=== PATIENT | male | born 1960 | race American Indian/Alaskan Native ===

== ENCOUNTER 2017-07-15 08:36 | Inpatient (IN) | payer OTHER ==
[2017-07-15 09:38] LABS: Basophils % (Auto) 0.9 % (0.0-1.8); Eosinophils % (Auto) 2.8 % (0.0-4.3); Hematocrit 30.1 % (35.5-45.6); Mean Corpuscular HGB Conc 33 % (32-34); Mean Corpuscular Hemoglobin 27 pg (28-32); Mean Corpuscular Volume 80 fl (84-94); Platelet Count 196 K/mm3 (140-440); Red Blood Count 3.75 M/mm3 (3.65-5.03); Red Cell Distribution Width 16.3 % (13.2-15.2); White Blood Count 5.1 K/mm3 (4.5-11.0)
[2017-07-15 09:51] LABS: Calcium 7.3 mg/dL (8.4-10.2); Chloride 98.5 mmol/L (98-107); Potassium 5.5 mmol/L (3.6-5.0)
[2017-07-15] MEDS ORDERED: SODIUM BICARBONATE IV ONE ×2 (10:22→11:00)
[2017-07-15] MEDS ORDERED: CALCIUM GLUCONATE 1,000 MG in NACL 0.9% 100 ML IV ONE (10:22)
--- NOTE | 2017-07-15 10:27 | Emergency Department Report ---
HPI - General Chief Complaint: Psych Time Seen by Provider: 07/15/17 10:22 - HPI HPI: Room 13 The patient is a 56-year-old male presenting with a chief complaint of suicidal ideation. The patient states he's been feeling "bad" about himself and had suicidal ideation for the past 2 weeks. Patient denies any active attempts but states he's had a plan to either cut his arm, pulling his hemodialysis needles out or push himself in front of a car. The patient received dialysis every Wednesday and Wednesday and last received dialysis 2 days ago Location: Mental state Duration: 2 weeks Quality: Suicidal Severity:severe Modifying factors: [see above] Context: [see above] Mode of transportation: [not driving] ED Past Medical Hx - Past Medical History Hx Hypertension: Yes (high chol.) Hx Diabetes: Yes Hx GERD: Yes Hx Liver Disease: Yes (HEP B) Hx Renal Disease: Yes (chronic renal insufficiency) Additional medical history: hepatitis B. TIA - Surgical History Hx Cholecystectomy: Yes - Family History Family history: no significant - Social History Smoking Status: Never Smoker Substance Use Type: None (denies illicit drug use) - Medications Home Medications: Home Medications Medication Instructions Recorded Confirmed Last Taken Type Entecavir 0.5 mg PO Q48H 09/24/15 01/28/16 01/28/16 History Insulin Glargine [Lantus VIAL] 10 unit SUB-Q DAILY 09/24/15 01/28/16 01/28/16 History Metoprolol [Lopressor TAB] 100 mg PO BID tablet 09/26/15 01/28/16 01/28/16 Rx AtorvaSTATin [Lipitor] 40 mg PO QHS #30 tablet 12/03/15 01/28/16 01/27/16 Rx amLODIPine [Norvasc] 10 mg PO QDAY #30 tablet 12/03/15 01/28/16 01/28/16 Rx hydrALAZINE [Apresoline TAB] 25 mg PO Q8HR #90 tablet 12/03/15 01/28/16 Rx Metolazone [Zaroxolyn] 5 mg PO QDAY 01/28/16 01/28/16 01/28/16 History Potassium Chloride [Klor-Con 10] 10 meq PO DAILY 01/28/16 01/28/16 01/28/16 History Torsemide [Demadex] 20 mg PO BID 01/28/16 01/28/16 01/28/16 History ED Review of Systems ROS: Stated complaint: EVALUATION Other details as noted in HPI Psychiatric: suicidal thoughts Physical Exam - Physical Exam Vital Signs: Vital Signs 07/15/17 09:02 Pulse Rate 63 Blood Pressure 149/95 O2 Sat by Pulse 97 Oximetry Physical Exam: GENERAL: The patient is well-developed well-nourished male lying on stretcher not appearing to be in acute distress. [] HEENT: Normocephalic. Atraumatic. Extraocular motions are intact. Patient has moist mucous membranes. NECK: Supple. Trachea midline CHEST/LUNGS: Clear to auscultation. There is no respiratory distress noted. HEART/CARDIOVASCULAR: Regular. There is no tachycardia. There is no gallop rub or murmur. ABDOMEN: Abdomen is soft, nontender. Patient has normal bowel sounds. There is no abdominal distention. SKIN: There is no rash. There is no diaphoresis. NEURO: The patient is awake, alert, and oriented. The patient is cooperative. The patient has normal speech MUSCULOSKELETAL: There is no evidence of acute injury. ED Course Vital Signs 07/15/17 09:02 Pulse Rate 63 Blood Pressure 149/95 O2 Sat by Pulse 97 Oximetry - Consultations Consultation #1: 07/15/17 10:38 Case discussed with stabilizer operator Dr. Bernal- will arrange for hemodialysis. Have Patient admitted by hospitalist ED Medical Decision Making - Lab Data Result diagrams: 07/15/17 09:25 07/15/17 09:22 Laboratory Tests 07/15/17 07/15/17 07/15/17 09:22 09:25 10:33 WBC 5.1 RBC 3.75 Hgb 10.0 L Hct 30.1 L MCV 80 L MCH 27 L MCHC 33 RDW 16.3 H Plt Count 196 Lymph % (Auto) 32.9 [place] % (Auto) 10.8 H Eos % (Auto) 2.8 Baso % (Auto) 0.9 Lymph # 1.7 [place]nn # 0.6 Eos # 0.1 Baso # 0.0 Seg Neutrophils % 52.6 Seg Neutrophils # 2.7 Sodium 139 Potassium 5.5 H Chloride 98.5 Carbon Dioxide 24 Anion Gap 22 BUN 73 H Creatinine 6.9 H Estimated GFR 10 BUN/Creatinine Ratio 11 Glucose 136 H Calcium 7.3 L Troponin T 0.303 H* Triglycerides 162 H Cholesterol 121 LDL Cholesterol Direct 48 L HDL Cholesterol 41 Cholesterol/HDL Ratio 2.95 Salicylates < 0.3 L Acetaminophen Plasma/Serum Alcohol 07/15/17 07/15/17 10:33 10:33 WBC RBC Hgb Hct MCV MCH MCHC RDW Plt Count Lymph % (Auto) [place] % (Auto) Eos % (Auto) Baso % (Auto) Lymph # [place]nn # Eos # Baso # Seg Neutrophils % Seg Neutrophils # Sodium Potassium Chloride Carbon Dioxide Anion Gap BUN Creatinine Estimated GFR BUN/Creatinine Ratio Glucose Calcium Troponin T Triglycerides Cholesterol LDL Cholesterol Direct HDL Cholesterol Cholesterol/HDL Ratio Salicylates Acetaminophen < 15.0 Plasma/Serum Alcohol < 0.01 - Differential Diagnosis suicidal ideation, end-stage renal disease Critical care attestation.: If time is entered above; I have spent that time in minutes in the direct care of this critically ill patient, excluding procedure time. ED Disposition Clinical Impression: Suicidal ideation, Hyperkalemia, End stage renal disease Disposition: OP ADMIT IP TO THIS HOSP Is pt being admited?: Yes Does the pt Need Aspirin: No Condition: Serious Referrals: PRIMARY CARE, [Primary Care Provider] - 3-5 Days Time of Disposition: 11:09 (hospitalist paged (Dr Spencer))
[2017-07-15] MEDS ORDERED: NACL 0.9% 100 ML IV PRN (10:42)
--- NOTE | 2017-07-15 13:13 | Consultation ---
History of Present Illness - Reason for Consult Consult date: 07/15/17 end stage renal disease - History of Present Illness Mr Trejo is a 56 y/o M with a PMH of ESRD on HD TTS via LUE AVF, Hepatitis, DM , HTN who presents to the [facility] with suicidal ideation. Pt says he has been having it for the last 2 weeks. He denies fever, chills, N/V, diarrhea, cough, SHOB, CP. Pt gets HD TTS via LUE AVF and last had his HD on wednesday. He gets HD with [facility]. Pt in the ER was found to have a K of 5.5. PMH: ESRD on HD TTS, DM, HTN PAST SURGICAL HISTORY: Cholecystectomy SOCIAL HISTORY: Denies alcohol, tobacco, drugs FAMILY HISTORY: Hypertension Medications and Allergies Allergies Allergy/AdvReac Type Severity Reaction Status Date / Time prochlorperazine Allergy Swelling Verified 09/24/15 16:42 [From Compazine] prochlorperazine edisylate Allergy Swelling Verified 09/24/15 16:42 [From Compazine] prochlorperazine maleate Allergy Swelling Verified 09/24/15 16:42 [From Compazine] acetaminophen [From Percocet] AdvReac Vomiting Verified 09/24/15 16:42 oxycodone HCl [From Percocet] AdvReac Vomiting Verified 09/24/15 16:42 Home Medications Medication Instructions Recorded Confirmed Last Taken Type Entecavir 0.5 mg PO Q48H 09/24/15 01/28/16 01/28/16 History Insulin Glargine [Lantus VIAL] 10 unit SUB-Q DAILY 09/24/15 01/28/16 01/28/16 History Metoprolol [Lopressor TAB] 100 mg PO BID tablet 09/26/15 01/28/16 01/28/16 Rx AtorvaSTATin [Lipitor] 40 mg PO QHS #30 tablet 12/03/15 01/28/16 01/27/16 Rx amLODIPine [Norvasc] 10 mg PO QDAY #30 tablet 12/03/15 01/28/16 01/28/16 Rx hydrALAZINE [Apresoline TAB] 25 mg PO Q8HR #90 tablet 12/03/15 01/28/16 Rx Metolazone [Zaroxolyn] 5 mg PO QDAY 01/28/16 01/28/16 01/28/16 History Potassium Chloride [Klor-Con 10] 10 meq PO DAILY 01/28/16 01/28/16 01/28/16 History Torsemide [Demadex] 20 mg PO BID 01/28/16 01/28/16 01/28/16 History Active Meds: Active Medications Sodium Chloride (Nacl 0.9%) 100 mls @ 999 mls/hr IV SAMMI PRN PRN Reason: Hypotension Exam - Vital Signs Vital signs: Vital Signs Pulse BP Pulse Ox 63 149/95 97 07/15/17 09:02 07/15/17 09:02 07/15/17 09:02 - Physical Exam Narrative exam: GE:AAOX3 HEENT: PERRLA Neck: No JVD CVS: RRR Chest: CTAB Abd: Soft/ND, BS+ Ext: No cce, LUE AVF with good thrill Neuro: AAOX3 Results - Lab Results 07/15/17 09:25 07/15/17 09:22 Most recent lab results Calcium 7.3 mg/dL (8.4-10.2) L 07/15/17 09:22 Assessment and Plan ESRD on hemodialysis: -TTE via LUE AVF OP -Plan for HD today -HD TTS while inpatient but will eval daily -Renally dose all meds -Check CBC, BMP, Mg, Phos daily Hyperkalemia: -HD today -Low K diet Suicidal ideation: -Getting admitted to the hospital -Consider Pysche consult -Per primary Elevated troponin: -Per primary Diabetes mellitus type 2 on insulin: -Per primary -Can continue insulin Essential Hypertension: -Titrate BP meds to Keep SBP<140 Chronic Hepatitis B: -Can continue home meds Hyperlipidemia, chronic: -Continue statin -Target LDL <70 Anemia of chronic disease due to ESRD: -Epogen to keep Hg 10-12 With this note, I want to thank Dr Spencer for allowing me to participate in the care of Mr Trejo, i will continue to follow him closely with you. Thank you for the consult. Jimbo Bernal MD Nephrology, Hypertension, Dialysis, Transplantation Phone no: [phone]
--- NOTE | 2017-07-15 13:59 | History and Physical Report ---
History of Present Illness Date of admission: 07/15/17 11:38 History of present illness: 56 YO Male with ESRD on HD(T,R,Sa), HTN, DM, GERD, HBV, HLD, TIA, presents to ED for evaluation. Pt state that he has been feeling "bad" about himself and his life and has been feeling suicidal for the past 2 weeks. Patient denies any active attempts to take his own life, but states that he would likely cut his arm, or pull out his hemodialysis needles, or throw himself in front of a moving car. Pt seen and evaluated in ED and found to Past History Past Medical History: diabetes, GERD, hepatitis, hypertension, hyperlipidemia Past Surgical History: cholecystectomy Social history: , lives with family. denies: smoking, alcohol abuse, prescription drug abuse, IV drug use Family history: diabetes, hypertension Medications and Allergies Allergies Allergy/AdvReac Type Severity Reaction Status Date / Time prochlorperazine Allergy Swelling Verified 09/24/15 16:42 [From Compazine] prochlorperazine edisylate Allergy Swelling Verified 09/24/15 16:42 [From Compazine] prochlorperazine maleate Allergy Swelling Verified 09/24/15 16:42 [From Compazine] acetaminophen [From Percocet] AdvReac Vomiting Verified 09/24/15 16:42 oxycodone HCl [From Percocet] AdvReac Vomiting Verified 09/24/15 16:42 Home Medications Medication Instructions Recorded Confirmed Last Taken Type Entecavir 0.5 mg PO Q48H 09/24/15 01/28/16 01/28/16 History Insulin Glargine [Lantus VIAL] 10 unit SUB-Q DAILY 09/24/15 01/28/16 01/28/16 History Metoprolol [Lopressor TAB] 100 mg PO BID tablet 09/26/15 01/28/16 01/28/16 Rx AtorvaSTATin [Lipitor] 40 mg PO QHS #30 tablet 12/03/15 01/28/16 01/27/16 Rx amLODIPine [Norvasc] 10 mg PO QDAY #30 tablet 12/03/15 01/28/16 01/28/16 Rx hydrALAZINE [Apresoline TAB] 25 mg PO Q8HR #90 tablet 12/03/15 01/28/16 Rx Metolazone [Zaroxolyn] 5 mg PO QDAY 01/28/16 01/28/16 01/28/16 History Potassium Chloride [Klor-Con 10] 10 meq PO DAILY 01/28/16 01/28/16 01/28/16 History Torsemide [Demadex] 20 mg PO BID 01/28/16 01/28/16 01/28/16 History Active Meds: Active Medications Sodium Chloride (Nacl 0.9%) 100 mls @ 999 mls/hr IV SAMMI PRN PRN Reason: Hypotension Review of Systems Constitutional: other (suicidal), no weight loss, no weight gain, no fever, no chills Ears, nose, mouth and throat: no ear pain, no ear discharge, no tinnitis, no decreased hearing, no nose pain, no nasal congestion Cardiovascular: shortness of breath, no chest pain, no orthopnea Respiratory: no cough, no cough with sputum, no excessive sputum, no hemoptysis Gastrointestinal: no abdominal pain, no nausea, no vomiting, no diarrhea, no constipation Genitourinary Male: no dysuria, no flank pain, no discharge, no urinary frequency, no urinary hesitancy, no nocturia Rectal: no pain, no incontinence, no bleeding Musculoskeletal: no neck stiffness, no neck pain, no low back pain, no shooting leg pain Integumentary: no rash, no pruritis, no redness, no sores, no wounds, no jaundice Neurological: no transient paralysis, no paralysis, no weakness, no parathesias , no numbness, no tingling, no seizures Psychiatric: sleep disturbances, hypersomnia, change in libido, suicidal ideation, depression, hopelessness, anhedonia, no change in appetite Endocrine: no cold intolerance, no heat intolerance, no polyphagia, no excessive thirst, no polydipsia, no polyuria Hematologic/Lymphatic: no easy bruising, no easy bleeding Allergic/Immunologic: no urticaria, no allergic rhinitis, no wheezing Exam - Constitutional Vitals: Temp Pulse Resp BP Pulse Ox 97.7 F 60 16 144/88 98 07/15/17 10:48 07/15/17 10:48 07/15/17 13:03 07/15/17 10:48 07/15/17 13:03 General appearance: Present: mild distress - EENT Eyes: Present: PERRL ENT: hearing intact, clear oral mucosa - Neck Neck: Present: supple, normal ROM - Respiratory Respiratory effort: labored Respiratory: bilateral: diminished, wheezing - Cardiovascular Heart Sounds: Present: S1 & S2. Absent: rub, click - Extremities Extremities: pulses symmetrical, No edema Extremity abnormal: edema Peripheral Pulses: within normal limits - Abdominal General gastrointestinal: Present: soft, non-tender, non-distended, normal bowel sounds Male genitourinary: Present: normal - Integumentary Integumentary: Present: clear, dry - Musculoskeletal Musculoskeletal: gait normal, strength equal bilaterally - Psychiatric Psychiatric: appropriate mood/affect, no intact judgment & insight, memory intact - Neurologic Neurologic: CNII-XII intact, moves all extremities Results - Labs CBC & Chem 7: 07/15/17 09:25 07/15/17 09:22 Labs: Abnormal lab results 07/15/17 07/15/17 07/15/17 Range/Units 09:22 09:25 10:33 Hgb 10.0 L (11.8-15.2) gm/dl Hct 30.1 L (35.5-45.6) % MCV 80 L (84-94) fl MCH 27 L (28-32) pg RDW 16.3 H (13.2-15.2) % [place] % (Auto) 10.8 H (0.0-7.3) % Potassium 5.5 H (3.6-5.0) mmol/L BUN 73 H (9-20) mg/dL Creatinine 6.9 H (0.8-1.5) mg/dL Glucose 136 H (75-100) mg/dL Calcium 7.3 L (8.4-10.2) mg/dL Troponin T 0.303 H* (0.00-0.029) ng/mL Triglycerides 162 H (2-149) mg/dL LDL Cholesterol Direct 48 L (50-130) mg/dL Salicylates < 0.3 L (2.8-20.0) mg/dL 07/15/17 Range/Units 11:58 Hgb (11.8-15.2) gm/dl Hct (35.5-45.6) % MCV (84-94) fl MCH (28-32) pg RDW (13.2-15.2) % [place] % (Auto) (0.0-7.3) % Potassium (3.6-5.0) mmol/L BUN (9-20) mg/dL Creatinine (0.8-1.5) mg/dL Glucose (75-100) mg/dL Calcium (8.4-10.2) mg/dL Troponin T 0.287 H* (0.00-0.029) ng/mL Triglycerides (2-149) mg/dL LDL Cholesterol Direct (50-130) mg/dL Salicylates (2.8-20.0) mg/dL Assessment and Plan - Patient Problems (1) Acute respiratory failure Current Visit: Yes Status: Acute Plan to address problem: Supplemental oxygen, nebulizer therapy, pulmonary toilet, dialysis as per renal team. NIPPV as clinically indicated. (2) Suicidal ideation Current Visit: Yes Status: Acute Plan to address problem: [address], 1:1 Sitter, psychiatry consulted, (3) HTN (hypertension) Current Visit: Yes Status: Acute Plan to address problem: Monitor BP q shift, continue medical management (4) Diabetes Current Visit: Yes Status: Acute Plan to address problem: ADA diet, insulin, Accu check (5) End stage renal disease Current Visit: Yes Status: Acute Plan to address problem: Nephrology consulted for dialysis, fluid restriction, monitor uop q shift, (6) DVT prophylaxis Current Visit: Yes Status: Acute
[2017-07-15] MEDS ORDERED: PROVENTIL IH PRN (16:17)
[2017-07-15] MEDS ORDERED: D50W (25GM) Syringe IV PRN (16:17)
[2017-07-15] MEDS ORDERED: TYLENOL PO PRN (16:17)
[2017-07-15] MEDS ORDERED: APRESOLINE IV PRN (23:37)
--- NOTE | 2017-07-16 10:01 | XRay Report ---
AP CHEST: HISTORY: Hypertension, volume status AP view of the chest demonstrates a normal mediastinal and cardiac contour with clear lungs and normal bony and soft tissue structures. IMPRESSION: Unremarkable AP chest.
--- NOTE | 2017-07-16 10:31 | Progress Note ---
Assessment and Plan ESRD on hemodialysis: -TTE via LUE AVF OP -s/p HD yesterday. No HD today. HD tomorrow. -HD TTS while inpatient but will eval daily -Renally dose all meds -Check CBC, BMP, Mg, Phos daily Hyperkalemia: -Kayxelate 30 gms ordered. -Low K diet Suicidal ideation: -Psyche consulted. -Per primary Elevated troponin: -Per primary Diabetes mellitus type 2 on insulin: -Per primary -Can continue insulin Essential Hypertension: -Titrate BP meds to Keep SBP<140 Chronic Hepatitis B: -Can continue home meds Hyperlipidemia, chronic: -Continue statin -Target LDL <70 Anemia of chronic disease due to ESRD: -Epogen to keep Hg - iJmbo Bernal MD Nephrology, Hypertension, Dialysis, Transplantation Phone no: [phone] Subjective Date of service: 07/16/17 Interval history: Denies CP/SHOB. s/p HD yesterday. Objective - Exam Narrative Exam: GE:AAOX3 HEENT: PERRLA Neck: No JVD CVS: RRR Chest: CTAB Abd: Soft/ND, BS+ Ext: No cce, LUE AVF with good thrill Neuro: AAOX3 - Vital Signs Vital signs: Vital Signs - 12hr 07/16/17 07:20 Temperature 98.7 F Pulse Rate 68 Respiratory 20 Rate Blood Pressure 126/79 O2 Sat by Pulse 99 Oximetry - Lab 07/15/17 09:25 07/16/17 10:47 Most recent lab results Calcium 7.3 mg/dL (8.4-10.2) L 07/15/17 09:22
[2017-07-16 11:34] LABS: Calcium 7.8 mg/dL (8.4-10.2); Chloride 95.6 mmol/L (98-107); Potassium 5.3 mmol/L (3.6-5.0)
[2017-07-16] MEDS ORDERED: KIONEX PO ONE (13:10)
--- NOTE | 2017-07-16 16:11 | Progress Note ---
Assessment and Plan /Suicidal ideation [address], 1:1 Sitter, psychiatry consulted, /Hyperkalemia Likely from end-stage renal disease Treated in the ER with calcium gluconate and Kayexalate Monitor potassium level, should improve with hemodialysis We'll also place him on as needed Kayexalate /HTN (hypertension) Monitor BP q shift, continue medical management with home meds /Diabetes type 2 ADA diet, insulin, Accu check /End stage renal disease Nephrology consulted for dialysis, fluid restriction, monitor uop q shift, /DVT prophylaxis Heparin Brief history: Mr Trejo is a 56 y/o M with a PMH of ESRD on HD TTS via LUE AVF, Hepatitis, DM , HTN who presents to the [facility] with suicidal ideation. Patient denies any active attempts but states he's had a plan to either cut his arm, pulling his hemodialysis needles out or push himself in front of a car. His last dialysis was 2 days ago before this admission. Radiological data: CXR - no infiltrates or pulmonary edema Hospitalist Physical exam: GENERAL: well-developed and well-nourished AAM lying on bed appeared to be in no discomfort. HEENT: Normocephalic. Atraumatic. No conjunctival congestion or icterus. Patient has moist mucous membranes. Patient is legally blind. NECK: Supple. Trachea midline. CHEST/LUNGS: Clear to auscultated bilaterally, breathing nonlabored. No wheezes crackles or rhonchi. HEART/CARDIOVASCULAR: Regular in rate and rhythm. S1 and S2 positive. ABDOMEN: Abdomen is soft, nontender. Patient has normal bowel sounds. SKIN: There is no rash. Warm and dry. NEURO: No focal motor deficit. Follows command. MUSCULOSKELETAL: No joint effusion or tenderness. EXTRIMITY: No edema, no cyanosis or clubbing. PSYCH: Cooperative. Subjective Date of service: 07/16/17 Interval history: Patient seen and examined. Medical records and medication list reviewed. No acute event overnight noted by the RN. Patient denies any chest pain or difficulty breathing. Patient is tolerating diet. Patient has Sitter at bedside Objective - Constitutional Vitals: Vital Signs - 12hr 07/16/17 07/16/17 07/16/17 07:20 10:00 11:54 Temperature 98.7 F 98.4 F Pulse Rate 68 64 Respiratory 20 20 Rate Blood Pressure 126/79 163/84 O2 Sat by Pulse 99 99 99 Oximetry 07/16/17 15:32 Temperature 98.5 F Pulse Rate 71 Respiratory 18 Rate Blood Pressure 144/81 O2 Sat by Pulse 99 Oximetry - Labs CBC & Chem 7: 07/15/17 09:25 07/17/17 06:24 Labs: Abnormal lab results 07/15/17 07/16/17 07/16/17 Range/Units 20:55 07:01 10:47 Potassium 5.3 H (3.6-5.0) mmol/L Chloride 95.6 L (98-107) mmol/L BUN 40 H (9-20) mg/dL Creatinine 5.0 H (0.8-1.5) mg/dL Glucose 222 H (75-100) mg/dL POC Glucose 112 H (70-105) Calcium 7.8 L (8.4-10.2) mg/dL Troponin T 0.315 H* (0.00-0.029) ng/mL 07/16/17 Range/Units 11:41 Potassium (3.6-5.0) mmol/L Chloride (98-107) mmol/L BUN (9-20) mg/dL Creatinine (0.8-1.5) mg/dL Glucose (75-100) mg/dL POC Glucose 193 H (70-105) Calcium (8.4-10.2) mg/dL Troponin T (0.00-0.029) ng/mL
[2017-07-16] MEDS ORDERED: KIONEX PO PRN (16:15)
[2017-07-16] MEDS ORDERED: NON-FORMULARY (Entecavir [Entecavir] 0.5 MG) PO SCH (16:30)
[2017-07-16] MEDS ORDERED: INSULIN GLARGINE 5 UNIT SUB-Q SCH (16:30)
[2017-07-16] MEDS: APRESOLINE PO SCH (17:25)
[2017-07-16] MEDS: NORVASC PO SCH (17:26)
[2017-07-16] MEDS: ZAROXOLYN PO SCH (19:22)
[2017-07-16] MEDS ORDERED: LOPRESSOR PO SCH ×2 (22:00)
[2017-07-16] MEDS: HEPARIN SUB-Q SCH (22:09)
[2017-07-17] MEDS: LOPRESSOR PO SCH ×3 (00:19→22:00)
[2017-07-17] MEDS: APRESOLINE PO SCH ×4 (00:20→22:00)
[2017-07-17] MEDS: LEVEMIR SUB-Q SCH ×2 (00:21→22:34)
[2017-07-17 07:51] LABS: Calcium 7.8 mg/dL (8.4-10.2); Chloride 97.1 mmol/L (98-107); Potassium 3.9 mmol/L (3.6-5.0)
[2017-07-17] MEDS: NORVASC PO SCH (10:00)
[2017-07-17] MEDS: ZAROXOLYN PO SCH (11:23)
[2017-07-17] MEDS: HEPARIN SUB-Q SCH ×2 (11:23→23:24)
--- NOTE | 2017-07-17 13:43 | Progress Note ---
Assessment and Plan ESRD on hemodialysis: -TTE via LUE AVF OP -Plan for HD today. -HD TTS while inpatient but will eval daily -Renally dose all meds -Check CBC, BMP, Mg, Phos daily Hyperkalemia: -Improved. -Low K diet Suicidal ideation: -Psyche consulted. -Per primary Elevated troponin: -Per primary Diabetes mellitus type 2 on insulin: -Per primary -Can continue insulin Essential Hypertension: -Titrate BP meds to Keep SBP<140 Chronic Hepatitis B: -Can continue home meds Hyperlipidemia, chronic: -Continue statin -Target LDL <70 Anemia of chronic disease due to ESRD: -Epogen to keep Hg 10-12 Plan d/w Dr Nj Bernal MD Nephrology, Hypertension, Dialysis, Transplantation Phone no: [phone] Subjective Date of service: 07/17/17 Interval history: Denies CP/SHOB. Objective - Exam Narrative Exam: GE:AAOX3 HEENT: PERRLA Neck: No JVD CVS: RRR Chest: CTAB Abd: Soft/ND, BS+ Ext: No cce, LUE AVF with good thrill Neuro: AAOX3 - Vital Signs Vital signs: Vital Signs - 12hr 07/17/17 07/17/17 07/17/17 04:38 06:54 06:55 Temperature 98.4 F Pulse Rate 70 70 Respiratory 20 18 Rate Blood Pressure 174/90 174/90 O2 Sat by Pulse 100 Oximetry 07/17/17 07:25 Temperature 98.6 F Pulse Rate 68 Respiratory 18 Rate Blood Pressure 144/84 O2 Sat by Pulse 97 Oximetry - Lab 07/15/17 09:25 07/17/17 06:24 Most recent lab results Calcium 7.8 mg/dL (8.4-10.2) L 07/17/17 06:24
--- NOTE | 2017-07-17 15:05 | Progress Note ---
Assessment and Plan /possible seizure will obtain ct head, eeg, neuro consult as needed ativan and place on keppra /Suicidal ideation [address], 1:1 Sitter, psychiatry consulted, /Hyperkalemia Likely from end-stage renal disease Treated in the ER with calcium gluconate and Kayexalate Monitor potassium level, should improve with hemodialysis We'll also place him on as needed Kayexalate /HTN (hypertension) Monitor BP q shift, continue medical management with home meds /Diabetes type 2 ADA diet, insulin, Accu check /End stage renal disease Nephrology consulted for dialysis, fluid restriction, monitor uop q shift, /DVT prophylaxis Heparin Brief history: Mr Trejo is a 56 y/o M with a PMH of ESRD on HD TTS via LUE AVF, Hepatitis, DM , HTN who presents to the [facility] with suicidal ideation. Patient denies any active attempts but states he's had a plan to either cut his arm, pulling his hemodialysis needles out or push himself in front of a car. His last dialysis was 2 days ago before this admission. Radiological data: CXR - no infiltrates or pulmonary edema Hospitalist Physical exam: GENERAL: well-developed and well-nourished AAM lying on bed appeared to be in no discomfort. HEENT: Normocephalic. Atraumatic. No conjunctival congestion or icterus. Patient has moist mucous membranes. Patient is legally blind. NECK: Supple. Trachea midline. CHEST/LUNGS: Clear to auscultated bilaterally, breathing nonlabored. No wheezes crackles or rhonchi. HEART/CARDIOVASCULAR: Regular in rate and rhythm. S1 and S2 positive. ABDOMEN: Abdomen is soft, nontender. Patient has normal bowel sounds. SKIN: There is no rash. Warm and dry. NEURO: No focal motor deficit. MUSCULOSKELETAL: No joint effusion or tenderness. EXTRIMITY: No edema, no cyanosis or clubbing. PSYCH: appears drowsye. Subjective Date of service: 07/17/17 Interval history: Medical records and medication list reviewed. patient noted to have shaking and blank stare during hd today, given ativan for possible seizure he remained vitally stable Patient has Sitter at bedside Objective - Constitutional Vitals: Vital Signs - 12hr 07/17/17 07/17/17 07/17/17 04:38 06:54 06:55 Temperature 98.4 F Pulse Rate 70 70 Respiratory 20 18 Rate Blood Pressure 174/90 174/90 O2 Sat by Pulse 100 Oximetry 07/17/17 07/17/17 07/17/17 07:25 13:30 14:00 Temperature 98.6 F 98.8 F Pulse Rate 68 63 61 Respiratory 18 18 Rate Blood Pressure 144/84 162/100 167/99 O2 Sat by Pulse 97 Oximetry 07/17/17 07/17/17 07/17/17 14:15 14:30 14:45 Temperature Pulse Rate 62 62 63 Respiratory Rate Blood Pressure 169/105 179/110 155/92 O2 Sat by Pulse Oximetry - Labs CBC & Chem 7: 07/15/17 09:25 07/17/17 06:24 Labs: Abnormal lab results 07/16/17 07/17/17 07/17/17 Range/Units 16:23 00:24 06:10 Chloride (98-107) mmol/L BUN (9-20) mg/dL Creatinine (0.8-1.5) mg/dL Glucose (75-100) mg/dL POC Glucose 180 H 112 H 124 H (70-105) Calcium (8.4-10.2) mg/dL 07/17/17 07/17/17 Range/Units 06:24 11:35 Chloride 97.1 L (98-107) mmol/L BUN 49 H (9-20) mg/dL Creatinine 5.9 H (0.8-1.5) mg/dL Glucose 131 H (75-100) mg/dL POC Glucose 165 H (70-105) Calcium 7.8 L (8.4-10.2) mg/dL
[2017-07-17] MEDS ORDERED: NACL 0.9 (PRIMING MACHINE ONLY DIALYSIS) MC ONE (16:29)
[2017-07-17] MEDS ORDERED: ATIVAN ONE (16:56)
[2017-07-17] MEDS ORDERED: ATIVAN IV PRN (18:17)
--- NOTE | 2017-07-17 19:05 | Cat Scan Report ---
FINAL REPORT EXAM: CT HEAD/BRAIN WO CON HISTORY: seizure TECHNIQUE: CT examination of the head without IV contrast PRIORS: 09/24/2015 FINDINGS: Clear mastoid air cells and middle ear cavities. Complete opacification of left frontal sinus, new from comparison. Scattered slight mucosal thickening in both ethmoid sinuses, unchanged. Polyp or retention cyst in right maxillary sinus, unchanged. Slight mucosal thickening left maxillary sinus, unchanged. Clear sphenoid and right frontal sinus. No acute air-fluid level visualized in the included air-filled sinuses. Bone windows demonstrate no acute fracture. Oblique patient position limits the examination. The brain is without mass, mass effect, hemorrhage, or acute infarct. There is no extra-axial intracranial bleed, brain bleed, or midline shift. The ventricles and sulci are age-appropriate. IMPRESSION: No acute CVA, intracranial bleed, or brain mass Slightly greater prominence of paranasal sinus disease without evidence of acute fluid level.
[2017-07-17] MEDS: KEPPRA 500 MG in NACL 0.9% 100 ML IV SCH (23:22)
[2017-07-17] MEDS: ZOFRAN IV PRN (23:39)
[2017-07-18] MEDS: APRESOLINE PO SCH ×3 (06:00→21:41)
[2017-07-18] MEDS: ZOFRAN IV PRN (08:15)
[2017-07-18] MEDS: LOPRESSOR PO SCH ×3 (09:41→21:41)
[2017-07-18] MEDS: NORVASC PO SCH ×3 (09:42→17:21)
[2017-07-18] MEDS: ZAROXOLYN PO SCH ×3 (09:43→17:20)
[2017-07-18] MEDS: HEPARIN SUB-Q SCH ×2 (09:44→21:41)
[2017-07-18] MEDS: KEPPRA 500 MG in NACL 0.9% 100 ML IV SCH (11:42)
[2017-07-18 14:51] LABS: Calcium 8.5 mg/dL (8.4-10.2)
[2017-07-18 14:52] LABS: Chloride 93.2 mmol/L (98-107); Potassium 4.4 mmol/L (3.6-5.0)
--- NOTE | 2017-07-18 15:29 | Progress Note ---
Assessment and Plan ESRD on hemodialysis: -TTE via LUE AVF OP -s/p HD yesterday, no HD today. -HD TTS while inpatient but will eval daily -Renally dose all meds -Check CBC, BMP, Mg, Phos daily Hyperkalemia: -Better with HD. -Low K diet Suicidal ideation: -Psyche consulted. -Per primary Elevated troponin: -Per primary Diabetes mellitus type 2 on insulin: -Per primary -Can continue insulin Essential Hypertension: -Titrate BP meds to Keep SBP<140 Chronic Hepatitis B: -Can continue home meds Hyperlipidemia, chronic: -Continue statin -Target LDL <70 Anemia of chronic disease due to ESRD: -Epogen to keep Hg 05-20 Jimbo Bernal MD Nephrology, Hypertension, Dialysis, Transplantation Phone no: [phone] Subjective Date of service: 07/18/17 Interval history: Denies CP/SHOB. s/p HD yesterday. Objective - Exam Narrative Exam: GE:AAOX3 HEENT: PERRLA Neck: No JVD CVS: RRR Chest: CTAB Abd: Soft/ND, BS+ Ext: No cce, LUE AVF with good thrill Neuro: AAOX3 - Vital Signs Vital signs: Vital Signs - 12hr 07/18/17 07/18/17 07/18/17 03:45 08:07 09:41 Temperature 98.6 F 98.2 F Pulse Rate 76 70 70 Respiratory 16 20 Rate Blood Pressure 125/86 149/88 149/68 O2 Sat by Pulse 98 98 Oximetry 07/18/17 07/18/17 09:42 11:19 Temperature 98.4 F Pulse Rate 70 77 Respiratory 16 Rate Blood Pressure 149/68 125/68 O2 Sat by Pulse 100 Oximetry - Lab 07/15/17 09:25 07/18/17 13:56 Most recent lab results Calcium 8.5 mg/dL (8.4-10.2) 07/18/17 13:56
--- NOTE | 2017-07-18 16:21 | Consultation ---
History of Present Illness Consult date: 07/18/17 History of present illness: thanks for consult pln to follow I need to check old records for his PMH thanks Past History Past Medical History: diabetes, GERD, hepatitis, hypertension, hyperlipidemia Past Surgical History: cholecystectomy Social history: , lives with family. denies: smoking, alcohol abuse, prescription drug abuse, IV drug use Family history: diabetes, hypertension Medications and Allergies Allergies Allergy/AdvReac Type Severity Reaction Status Date / Time peanut Allergy Hives Verified 07/15/17 22:29 prochlorperazine Allergy Swelling Verified 09/24/15 16:42 [From Compazine] prochlorperazine edisylate Allergy Swelling Verified 09/24/15 16:42 [From Compazine] prochlorperazine maleate Allergy Swelling Verified 09/24/15 16:42 [From Compazine] acetaminophen [From Percocet] AdvReac Vomiting Verified 09/24/15 16:42 oxycodone HCl [From Percocet] AdvReac Vomiting Verified 09/24/15 16:42 Home Medications Medication Instructions Recorded Confirmed Last Taken Type Entecavir 0.5 mg PO Q48H 09/24/15 07/16/17 01/28/16 History Insulin Glargine [Lantus VIAL] 10 unit SUB-Q DAILY 09/24/15 07/16/17 01/28/16 History Metoprolol [Lopressor TAB] 100 mg PO BID tablet 09/26/15 07/16/17 01/28/16 Rx AtorvaSTATin [Lipitor] 40 mg PO QHS #30 tablet 12/03/15 07/16/17 01/27/16 Rx amLODIPine [Norvasc] 10 mg PO QDAY #30 tablet 12/03/15 07/16/17 01/28/16 Rx hydrALAZINE [Apresoline TAB] 25 mg PO Q8HR #90 tablet 12/03/15 07/16/17 Rx Metolazone [Zaroxolyn] 5 mg PO QDAY 01/28/16 07/16/17 01/28/16 History Potassium Chloride [Klor-Con 10] 10 meq PO DAILY 01/28/16 07/16/17 01/28/16 History Torsemide [Demadex] 20 mg PO BID 01/28/16 07/16/17 01/28/16 History Aspirin 325 mg PO DAILY 07/18/17 07/18/17 Unknown History Clonidine 0.1 mg PO Q8HR PRN 07/18/17 07/18/17 Unknown History Colace CAP 100 mg PO BID PRN 07/18/17 07/18/17 Unknown History Fluoxetine HCl 40 mg PO DAILY 07/18/17 07/18/17 Unknown History Gabapentin 100 mg PO DAILY 07/18/17 07/18/17 Unknown History Humalog 2 units SC AC 07/18/17 07/18/17 Unknown History Insulin Detemir [Levemir] 12 units SC HS 07/18/17 07/18/17 Unknown History Lisinopril 20 mg PO DAILY 07/18/17 07/18/17 Unknown History Metoprolol 50 mg PO BID 07/18/17 07/18/17 Unknown History Nifedipine 30 mg PO TID 07/18/17 07/18/17 Unknown History Ondansetron TAB 4 mg PO Q8H 07/18/17 07/18/17 Unknown History Protonix TAB 40 mg PO DAILY 07/18/17 07/18/17 Unknown History Sensipar 30 mg PO MOTUWETHFR 07/18/17 07/18/17 Unknown History Sevelamer Carbonate 1,600 tab PO AC 07/18/17 07/18/17 Unknown History cloNIDine-TTS PATCH 0.1 mg TP QWEEK 07/18/17 07/18/17 07/12/17 History 0.1mg traZODone [Desyrel] 50 mg PO HS 07/18/17 07/18/17 Unknown History Active Meds: Active Medications Acetaminophen (Tylenol) 650 mg PO Q4H PRN PRN Reason: Pain MILD(1-3)/Fever >100.5/KELLER Last Admin: 07/17/17 06:55 Dose: 650 mg Albuterol (Proventil) 2.5 mg IH Q4HRT PRN PRN Reason: Shortness Of Breath Amlodipine Besylate (Norvasc) 10 mg PO QDAY [facility] Last Admin: 07/18/17 09:42 Dose: 10 mg Atorvastatin Calcium (Lipitor) 40 mg PO QHS [facility] Last Admin: 07/17/17 23:23 Dose: 40 mg Dextrose (D50w (25gm) Syringe) 50 ml IV PRN PRN PRN Reason: Hypoglycemia Heparin Sodium (Porcine) (Heparin) 5,000 unit SUB-Q Q12HR [facility] Last Admin: 07/18/17 09:44 Dose: 5,000 unit Hydralazine HCl (Apresoline) 10 mg IV Q4H PRN PRN Reason: SBP>165 or DBP>105 Last Admin: 07/16/17 00:09 Dose: 10 mg Hydralazine HCl (Apresoline) 25 mg PO Q8HR [facility] Last Admin: 07/17/17 22:00 Dose: Not Given Sodium Chloride (Nacl 0.9%) 100 mls @ 999 mls/hr IV SAMMI PRN PRN Reason: Hypotension Insulin Detemir (Levemir) 5 units SUB-Q QHS [facility] Last Admin: 07/17/17 22:34 Dose: Not Given Insulin Detemir (Levemir) 5 units SUB-Q HS [facility] Lorazepam (Ativan) 2 mg IV Q4H PRN PRN Reason: Seizures Metolazone (Zaroxolyn) 5 mg PO QDAY [facility] Last Admin: 07/18/17 09:43 Dose: 5 mg Metoprolol Tartrate (Lopressor) 50 mg PO BID [facility] Last Admin: 07/17/17 22:00 Dose: Not Given Miscellaneous Medication (Entecavir [Entecavir]) 0.5 mg PO Q48H [facility] Miscellaneous Medication (Aspirin) 325 mg PO DAILY [facility] Miscellaneous Medication (Clonidine) 0.1 mg PO Q8HR PRN PRN Reason: B/P OVER 180/110 Miscellaneous Medication (Colace Cap) 100 mg PO BID PRN PRN Reason: Constipation Miscellaneous Medication (Fluoxetine Hcl) 40 mg PO DAILY [facility] Miscellaneous Medication (Gabapentin) 100 mg PO DAILY [facility] Miscellaneous Medication (Humalog) 2 units SC AC [facility] Miscellaneous Medication (Lisinopril) 20 mg PO DAILY [facility] Miscellaneous Medication (Ondansetron Tab) 4 mg PO Q8H [facility] Miscellaneous Medication (Sensipar) 30 mg PO MOTUWETHFR [facility] Miscellaneous Medication (Sevelamer Carbonate) 1,600 tab PO AC [facility] Ondansetron HCl (Zofran) 4 mg IV Q8H PRN PRN Reason: N/V unrelieved by Kasie Last Admin: 07/18/17 08:15 Dose: 4 mg Sodium Polystyrene Sulfonate (Kionex) 15 gm PO Q6HR PRN PRN Reason: Hyperkalemia Trazodone HCl (Desyrel) 50 mg PO HS [facility] Physical Examination - Vital Signs Vital Signs: Vital Signs Pulse BP Pulse Ox 63 149/95 97 07/15/17 09:02 07/15/17 09:02 07/15/17 09:02 Results - Laboratory Findings CBC and BMP: 07/15/17 09:25 07/18/17 13:56 Abnormal Lab Findings: Abnormal Labs 07/15/17 07/15/17 07/15/17 09:22 09:25 10:33 Hgb 10.0 L Hct 30.1 L MCV 80 L MCH 27 L RDW 16.3 H Edmunds % (Auto) 10.8 H Sodium Potassium 5.5 H Chloride BUN 73 H Creatinine 6.9 H Glucose 136 H POC Glucose Calcium 7.3 L Troponin T 0.303 H* Triglycerides 162 H LDL Cholesterol Direct 48 L Salicylates < 0.3 L 07/15/17 07/15/17 07/16/17 11:58 20:55 07:01 Hgb Hct MCV MCH RDW Edmunds % (Auto) Sodium Potassium Chloride BUN Creatinine Glucose POC Glucose 112 H Calcium Troponin T 0.287 H* 0.315 H* Triglycerides LDL Cholesterol Direct Salicylates 07/16/17 07/16/17 07/16/17 10:47 11:41 16:23 Hgb Hct MCV MCH RDW Edmunds % (Auto) Sodium Potassium 5.3 H Chloride 95.6 L BUN 40 H Creatinine 5.0 H Glucose 222 H POC Glucose 193 H 180 H Calcium 7.8 L Troponin T Triglycerides LDL Cholesterol Direct Salicylates 07/17/17 07/17/17 07/17/17 00:24 06:10 06:24 Hgb Hct MCV MCH RDW Edmunds % (Auto) Sodium Potassium Chloride 97.1 L BUN 49 H Creatinine 5.9 H Glucose 131 H POC Glucose 112 H 124 H Calcium 7.8 L Troponin T Triglycerides LDL Cholesterol Direct Salicylates 07/17/17 07/17/17 07/17/17 11:35 16:57 17:37 Hgb Hct MCV MCH RDW Edmunds % (Auto) Sodium Potassium Chloride BUN Creatinine Glucose POC Glucose 165 H 173 H 153 H Calcium Troponin T Triglycerides LDL Cholesterol Direct Salicylates 07/17/17 07/18/17 07/18/17 22:14 03:56 06:11 Hgb Hct MCV MCH RDW Edmunds % (Auto) Sodium Potassium Chloride BUN Creatinine Glucose POC Glucose 136 H 174 H 144 H Calcium Troponin T Triglycerides LDL Cholesterol Direct Salicylates 07/18/17 07/18/17 11:17 13:56 Hgb Hct MCV MCH RDW Edmunds % (Auto) Sodium 135 L Potassium Chloride 93.2 L BUN 44 H Creatinine 6.4 H Glucose 230 H POC Glucose 200 H Calcium Troponin T Triglycerides LDL Cholesterol Direct Salicylates
[2017-07-18] MEDS ORDERED: SEVELAMER CARBONATE PO SCH (16:30)
[2017-07-18] MEDS ORDERED: CATAPRES PO PRN (17:00)
[2017-07-18] MEDS ORDERED: COLACE PO PRN (17:00)
[2017-07-18] MEDS: ZESTRIL PO SCH (17:20)
[2017-07-18] MEDS: NEURONTIN PO SCH (17:20)
[2017-07-18] MEDS: PROzac PO SCH (17:37)
[2017-07-18] MEDS: SENSIPAR PO SCH (17:38)
[2017-07-18] MEDS: ASPIRIN PO SCH (17:38)
[2017-07-18] MEDS: ZOFRAN PO SCH (17:49)
[2017-07-18] MEDS: NOVOLOG SUB-Q SCH (17:49)
--- NOTE | 2017-07-18 18:02 | Consultation ---
History of Present Illness - Reason for Consult Consult date: 07/18/17 Reason for consult: psychiatric evaluation, suicidal ideation - Chief Complaint Chief complaint: "I had to act up so I could talk to someone." Mr Trejo is a 56 y/o M with a past medical history of ESRD, hemodialysis, DM, HTN, legally blind, who presented to the [facility] with suicidal ideation. He was seen on the medical floor for evaluation. On arrival to the hospital he denied any active attempts but states he had a plan to either cut his arm, pulling his hemodialysis needles out or push himself in front of a car. He also says he refused dialysis. He provided inconsistent information on interview. He initially reported being happlily but then says his is going to leave him. He reports financial issues and does not know why his SSD has not been started. He states he lives with his [id number]. Later he says he has been in a medical rehab and was scheduled to be released last week. He went to dialysis shortly after and then rolled himself into the parking lot stating he was going to harm himself. He says that is what he had to do so he could "talk to someone." He reports depression about his health, marriage, and finances. He plans to continue his medical treatment. He is unsure what medications he takes. He is currently on prozac 40mg daily and trazodone 50mg hs per the record. His thought process was circumstantial and tangential. He had to be redirected multiple times. He is focused on obtaining resources. He currently denies suicidal ideation but endorses depression. He denies psychotic symptoms. He denies illicit substance use or alcohol. Medications and Allergies Allergies Allergy/AdvReac Type Severity Reaction Status Date / Time peanut Allergy Hives Verified 07/15/17 22:29 prochlorperazine Allergy Swelling Verified 09/24/15 16:42 [From Compazine] prochlorperazine edisylate Allergy Swelling Verified 09/24/15 16:42 [From Compazine] prochlorperazine maleate Allergy Swelling Verified 09/24/15 16:42 [From Compazine] acetaminophen [From Percocet] AdvReac Vomiting Verified 09/24/15 16:42 oxycodone HCl [From Percocet] AdvReac Vomiting Verified 09/24/15 16:42 Home Medications Medication Instructions Recorded Confirmed Last Taken Type Entecavir 0.5 mg PO Q48H 09/24/15 07/16/17 01/28/16 History Insulin Glargine [Lantus VIAL] 10 unit SUB-Q DAILY 09/24/15 07/16/17 01/28/16 History Metoprolol [Lopressor TAB] 100 mg PO BID tablet 09/26/15 07/16/17 01/28/16 Rx AtorvaSTATin [Lipitor] 40 mg PO QHS #30 tablet 12/03/15 07/16/17 01/27/16 Rx amLODIPine [Norvasc] 10 mg PO QDAY #30 tablet 12/03/15 07/16/17 01/28/16 Rx hydrALAZINE [Apresoline TAB] 25 mg PO Q8HR #90 tablet 12/03/15 07/16/17 Rx Metolazone [Zaroxolyn] 5 mg PO QDAY 01/28/16 07/16/17 01/28/16 History Potassium Chloride [Klor-Con 10] 10 meq PO DAILY 01/28/16 07/16/17 01/28/16 History Torsemide [Demadex] 20 mg PO BID 01/28/16 07/16/17 01/28/16 History Aspirin 325 mg PO DAILY 07/18/17 07/18/17 Unknown History Clonidine 0.1 mg PO Q8HR PRN 07/18/17 07/18/17 Unknown History Colace CAP 100 mg PO BID PRN 07/18/17 07/18/17 Unknown History Fluoxetine HCl 40 mg PO DAILY 07/18/17 07/18/17 Unknown History Gabapentin 100 mg PO DAILY 07/18/17 07/18/17 Unknown History Humalog 2 units SC AC 07/18/17 07/18/17 Unknown History Insulin Detemir [Levemir] 12 units SC HS 07/18/17 07/18/17 Unknown History Lisinopril 20 mg PO DAILY 07/18/17 07/18/17 Unknown History Metoprolol 50 mg PO BID 07/18/17 07/18/17 Unknown History Nifedipine 30 mg PO TID 07/18/17 07/18/17 Unknown History Ondansetron TAB 4 mg PO Q8H 07/18/17 07/18/17 Unknown History Protonix TAB 40 mg PO DAILY 07/18/17 07/18/17 Unknown History Sensipar 30 mg PO MOTUWETHFR 07/18/17 07/18/17 Unknown History Sevelamer Carbonate 1,600 tab PO AC 07/18/17 07/18/17 Unknown History cloNIDine-TTS PATCH 0.1 mg TP QWEEK 07/18/17 07/18/17 07/12/17 History 0.1mg traZODone [Desyrel] 50 mg PO HS 07/18/17 07/18/17 Unknown History Active Meds: Active Medications Acetaminophen (Tylenol) 650 mg PO Q4H PRN PRN Reason: Pain MILD(1-3)/Fever >100.5/[facility]LLER Last Admin: 07/17/17 06:55 Dose: 650 mg Albuterol (Proventil) 2.5 mg IH Q4HRT PRN PRN Reason: Shortness Of Breath Amlodipine Besylate (Norvasc) 10 mg PO QDAY [facility] Last Admin: 07/18/17 17:21 Dose: 10 mg Aspirin (Aspirin) 325 mg PO QDAY [facility] Last Admin: 07/18/17 17:38 Dose: 325 mg Atorvastatin Calcium (Lipitor) 40 mg PO QHS [facility] Last Admin: 07/17/17 23:23 Dose: 40 mg Cinacalcet (Sensipar) 30 mg PO [id number]@1000 [facility] Last Admin: 07/18/17 17:38 Dose: Not Given Clonidine HCl (Catapres) 0.1 mg PO Q8H PRN PRN Reason: BP 180/110 Dextrose (D50w (25gm) Syringe) 50 ml IV PRN PRN PRN Reason: Hypoglycemia Docusate Sodium (Colace) 100 mg PO BID PRN PRN Reason: STOOL SOFTENER Fluoxetine HCl (Prozac) 40 mg PO QDAY [facility] Last Admin: 07/18/17 17:37 Dose: 40 mg Gabapentin (Neurontin) 100 mg PO DAILY [facility] Last Admin: 07/18/17 17:20 Dose: 100 mg Heparin Sodium (Porcine) (Heparin) 5,000 unit SUB-Q Q12HR [facility] Last Admin: 07/18/17 09:44 Dose: 5,000 unit Hydralazine HCl (Apresoline) 10 mg IV Q4H PRN PRN Reason: SBP>165 or DBP>105 Last Admin: 07/16/17 00:09 Dose: 10 mg Hydralazine HCl (Apresoline) 25 mg PO Q8HR [facility] Last Admin: 07/18/17 10:00 Dose: Not Given Sodium Chloride (Nacl 0.9%) 100 mls @ 999 mls/hr IV SAMMI PRN PRN Reason: Hypotension Insulin Aspart (Novolog) 2 units SUB-Q [facility] Last Admin: 07/18/17 17:49 Dose: 2 units Insulin Detemir (Levemir) 5 units SUB-Q QHS [facility] Last Admin: 07/17/17 22:34 Dose: Not Given Lisinopril (Zestril) 20 mg PO QDAY [facility] Last Admin: 07/18/17 17:20 Dose: 20 mg Lorazepam (Ativan) 2 mg IV Q4H PRN PRN Reason: Seizures Metolazone (Zaroxolyn) 5 mg PO QDAY [facility] Last Admin: 07/18/17 17:20 Dose: 5 mg Metoprolol Tartrate (Lopressor) 50 mg PO BID [facility] Last Admin: 07/18/17 10:00 Dose: Not Given Miscellaneous Medication (Entecavir [Entecavir]) 0.5 mg PO Q48H [facility] Ondansetron HCl (Zofran) 4 mg PO Q8H [facility] Last Admin: 07/18/17 17:49 Dose: Not Given Sevelamer Carbonate (Renvela) 1,600 mg PO [facility] Sodium Polystyrene Sulfonate (Kionex) 15 gm PO Q6HR PRN PRN Reason: Hyperkalemia Trazodone HCl (Desyrel) 50 mg PO [facility] Past psychiatric history - Past Medical History Past Medical History: other (see HPI. he denies hepatitis) - past Psychiatric treatment and history Psych: Depression - Social History Social history: Mental Status Exam - Vital signs Last Vital Signs Temp 98.0 F 07/18/17 16:45 Pulse 67 07/18/17 17:21 Resp 20 07/18/17 16:45 BP 164/97 07/18/17 17:21 Pulse Ox 100 07/18/17 11:19 - Exam Orientation: time, place, person Affect: depressed, anxious Mood: congruent with affect Thought content: other (no suicidal or homicidal ideation) Thought Process: Circumstantial, Tangential Perceptions: none Speech: normal rate and pattern Concentration: distractible Motor activity: other (fidgety) Level of consciousness: alert Memory: Recent Impaired (word recall /3, then 1/3. World -Dlowr. a&o x 4) Sleep Symptoms: Difficulty Falling Asleep Interaction: irritable, cooperative Results Result Diagrams: 07/15/17 09:25 07/18/17 13:56 Abnormal lab results 07/17/17 07/18/17 07/18/17 Range/Units 22:14 03:56 06:11 Sodium (137-145) mmol/L Chloride (98-107) mmol/L BUN (9-20) mg/dL Creatinine (0.8-1.5) mg/dL Glucose (75-100) mg/dL POC Glucose 136 H 174 H 144 H (70-105) 07/18/17 07/18/17 Range/Units 11:17 13:56 Sodium 135 L (137-145) mmol/L Chloride 93.2 L (98-107) mmol/L BUN 44 H (9-20) mg/dL Creatinine 6.4 H (0.8-1.5) mg/dL Glucose 230 H (75-100) mg/dL POC Glucose 200 H (70-105) All other labs normal. Assessment and Plan Assessment and plan: Impression: Depression is evident but he currently denies suicidal ideation. His initial report in the interview is inconsistent with his later report regarding his circumstances. r/o suicidal ideation report for secondary gain, related to unstable living situation. He clearly needs resources. Case management to be involved. major depressive disorder, recurrent, without psychotic features Recommendation: Case management is recommended to get involved regarding his living situation. Financial concerns need to be addressed with the appropriate staff. Continue 1013 Psych will assess again in 24 hours. Continue prozac and trazodone as ordered by the medical team.
[2017-07-18] MEDS: DESYREL PO SCH (21:41)
--- NOTE | 2017-07-18 21:59 | Progress Note ---
Assessment and Plan /possible seizure negative ct head, eeg pending, neuro consulted cont as needed ativan and will stop keppra for now Patient may having pseudoseizure, will follow EEG report /Suicidal ideation [address], 1:1 Sitter, psychiatry consulted, cont home meds for now /Hyperkalemia Likely from end-stage renal disease Treated in the ER with calcium gluconate and Kayexalate Monitor potassium level, should improve with hemodialysis We'll also place him on as needed Kayexalate if k >5.2 /HTN (hypertension) Monitor BP q shift, continue medical management with home meds /Diabetes type 2 ADA diet, insulin, Accu check /End stage renal disease Nephrology consulted for dialysis, fluid restriction, monitor uop q shift, /DVT prophylaxis Heparin Brief history: Mr Trejo is a 56 y/o M with a PMH of ESRD on HD TTS via LUE AVF, Hepatitis, DM , HTN who presents to the [facility] with suicidal ideation. Patient denies any active attempts but states he's had a plan to either cut his arm, pulling his hemodialysis needles out or push himself in front of a car. His last dialysis was 2 days ago before this admission. Radiological data: CXR - no infiltrates or pulmonary edema Hospitalist Physical exam: GENERAL: well-developed and well-nourished AAM lying on bed appeared to be in no discomfort. HEENT: Normocephalic. Atraumatic. No conjunctival congestion or icterus. Patient has moist mucous membranes. Patient is legally blind. NECK: Supple. Trachea midline. CHEST/LUNGS: Clear to auscultated bilaterally, breathing nonlabored. No wheezes crackles or rhonchi. HEART/CARDIOVASCULAR: Regular in rate and rhythm. S1 and S2 positive. ABDOMEN: Abdomen is soft, nontender. Patient has normal bowel sounds. SKIN: There is no rash. Warm and dry. NEURO: No focal motor deficit. MUSCULOSKELETAL: No joint effusion or tenderness. EXTRIMITY: No edema, no cyanosis or clubbing. PSYCH: appears mentally stressed. Subjective Date of service: 07/18/17 Interval history: Medical records and medication list reviewed. patient noted to have shaking and blank stare during hd on 07/17/17, given ativan for possible seizure he remained vitally stable, Patient has Sitter at bedside discussed with at bedside and by phone and updated her in details He had another episode when he did not respond to verbal commend, but his eyes were wide open and he was moving his extremities and also remained vitally stable during the episode. It lasted for about a minute and then he started to talk again. he states he is getting drowsy with seizure med and does not want keppra unless recommended by neurology. was at bedside and updated plan of care Objective - Constitutional Vitals: Vital Signs - 12hr 07/18/17 07/18/17 07/18/17 11:19 16:45 17:02 Temperature 98.4 F 98.0 F Pulse Rate 77 67 Respiratory 16 20 Rate Blood Pressure 125/68 187/95 164/97 Blood Pressure 164/97 [Left] O2 Sat by Pulse 100 Oximetry 07/18/17 07/18/17 07/18/17 17:20 17:21 19:40 Temperature 98.3 F Pulse Rate 67 67 71 Respiratory 18 Rate Blood Pressure 164/97 164/97 157/90 Blood Pressure [Left] O2 Sat by Pulse 100 Oximetry 07/18/17 21:41 Temperature Pulse Rate 71 Respiratory Rate Blood Pressure 157/90 Blood Pressure [Left] O2 Sat by Pulse Oximetry - Labs CBC & Chem 7: 07/15/17 09:25 07/18/17 13:56 Labs: Abnormal lab results 07/17/17 07/18/17 07/18/17 Range/Units 22:14 03:56 06:11 Sodium (137-145) mmol/L Chloride (98-107) mmol/L BUN (9-20) mg/dL Creatinine (0.8-1.5) mg/dL Glucose (75-100) mg/dL POC Glucose 136 H 174 H 144 H (70-105) 07/18/17 07/18/17 07/18/17 Range/Units 11:17 13:56 17:46 Sodium 135 L (137-145) mmol/L Chloride 93.2 L (98-107) mmol/L BUN 44 H (9-20) mg/dL Creatinine 6.4 H (0.8-1.5) mg/dL Glucose 230 H (75-100) mg/dL POC Glucose 200 H 297 H (70-105)
[2017-07-18] MEDS ORDERED: LEVEMIR SUB-Q SCH (22:00)
[2017-07-19] MEDS: LEVEMIR SUB-Q SCH ×2 (00:12→23:12)
[2017-07-19] MEDS: ZOFRAN PO SCH ×3 (02:05→18:13)
[2017-07-19] MEDS: APRESOLINE PO SCH ×3 (06:00→22:01)
[2017-07-19] MEDS: PROzac PO SCH ×2 (08:50→18:40)
[2017-07-19] MEDS: SENSIPAR PO SCH ×2 (08:50→18:40)
[2017-07-19] MEDS: HEPARIN SUB-Q SCH ×3 (08:51→23:13)
[2017-07-19] MEDS: ZESTRIL PO SCH ×2 (08:51→18:40)
[2017-07-19] MEDS: ASPIRIN PO SCH ×2 (08:51→18:39)
[2017-07-19] MEDS: NEURONTIN PO SCH ×2 (08:52→18:40)
[2017-07-19] MEDS: LOPRESSOR PO SCH ×3 (08:52→22:02)
[2017-07-19] MEDS: NOVOLOG SUB-Q SCH ×3 (08:52→18:13)
[2017-07-19] MEDS: NORVASC PO SCH ×2 (08:53→18:40)
--- NOTE | 2017-07-19 11:30 | Progress Note ---
Subjective - Reason for Consult Consult date: 07/19/17 Reason for consult: Psychiatry Follow-up - Chief Complaint Chief complaint: "I want to talk with someone" Mr Trejo is a 56 y/o M with a past medical history of ESRD, hemodialysis, DM, HTN, legally blind, who presented to the [facility] with suicidal ideation. Today patient is calm and cooperative during the assessment. He stated that he was never suicidal on admission, just upset that he could not talk with someone about his life. He stated that he lives with his [id number] along with his spouse. He stated that he would like to live with his "only." He stated that his life has been rough since he became sick. He is adamant about wanting to see a therapist so he can discuss his past and future. He denies SI/HI's and AVH's. He rate his depression 5/10, with 10 being the worse. He denies sleep disturbance. He denies any side effects of his medications. Mental Status Exam - Vital signs Last Vital Signs Temp 97.9 F 07/19/17 08:03 Pulse 64 07/19/17 08:51 Resp 16 07/19/17 08:03 BP 101/64 07/19/17 08:51 Pulse Ox 99 07/19/17 10:00 - Exam Narrative exam: MSE: Appearance: calm, cooperative Behavior: regular eye contact Speech: regular rate and tone Mood: "okay" Affect: congruent to mood Thought Process: logical Thought Content: denies SI/HI's and AVH's Motor Activity: sitting up in bed Cognition: A/O x3 Insight: fair Judgment: fair Assessment and Plan Impression: MDD, recurrent w/o psychotic features. Recommendation: Evaluate 1013 in 24 hours and gather collateral information from his spouse to determine proper dispo. Continue Prozac and Trazodone as ordered by the medical team. Discusses possible suicidality/medication induced genevieve/priapism (Trazodone) with patient reference antidepressants. Recommended Intensive Outpatient services (IOP) with [facility] once discharged, patient agreed. Also, patient given outpatient psy services for [facility] if he cannot attend IOP.
[2017-07-19] MEDS: ZAROXOLYN PO SCH (13:02)
--- NOTE | 2017-07-19 14:35 | Progress Note ---
Assessment and Plan - Patient Problems (1) End stage renal disease Current Visit: Yes Status: Acute Plan to address problem: Hemodialysis scheduled for tomorrow Fluid restriction of 1 liter per day Avoid Nephrotoxic agents Renally dose medications Monitor I/O's Assess dialysis needs daily (2) Suicidal ideation Current Visit: Yes Status: Acute Plan to address problem: On Prozac and Trazadone. On 1013 watch Psychiatry onboard (3) HTN (hypertension) Current Visit: Yes Status: Acute Plan to address problem: Blood pressures are controlled (4) Type 2 diabetes mellitus with diabetic chronic kidney disease Current Visit: No Status: Chronic Plan to address problem: On insulin therapy as per Attending Subjective Date of service: 07/19/17 Principal diagnosis: ESRD Interval history: Patient seen sitting up in bed. Sitter in hallway. States he had a meltdown. Objective - Vital Signs Vital signs: Vital Signs - 12hr 07/19/17 07/19/17 07/19/17 04:26 08:03 08:51 Temperature 98.1 F 97.9 F Pulse Rate 58 L 63 64 Respiratory 18 16 Rate Blood Pressure 106/52 102/71 101/64 O2 Sat by Pulse 100 99 Oximetry 07/19/17 10:00 Temperature Pulse Rate Respiratory Rate Blood Pressure O2 Sat by Pulse 99 Oximetry - General Appearance General appearance: well-developed, appears stated age, other EENT: ATNC, PERRL, other (Blind) Neck: no JVD, supple Respiratory: Present: Decreased Breath Sounds Cardiology: regular, S1S2 Gastrointestinal: normoactive bowel sounds Integumentary: warm and dry Neurologic: alert and oriented x3 Musculoskeletal: no deformities, no erythema, no cyanosis, no clubbing Psychiatric: cooperative - Lab 07/15/17 09:25 07/18/17 13:56 Most recent lab results Calcium 8.5 mg/dL (8.4-10.2) 07/18/17 13:56
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
[2017-07-19] MEDS ORDERED: SENSIPAR 30 MG PO SCH (16:01)
[2017-07-19] MEDS: RENVELA PO SCH (18:13)
[2017-07-19] MEDS: DESYREL PO SCH (23:10)
[2017-07-20] MEDS: ZOFRAN PO SCH ×3 (02:28→17:05)
[2017-07-20] MEDS: APRESOLINE PO SCH ×3 (06:00→21:36)
[2017-07-20 07:05] LABS: Basophils % (Auto) 0.7 % (0.0-1.8); Eosinophils % (Auto) 3.3 % (0.0-4.3); Hematocrit 29.2 % (35.5-45.6); Hemoglobin 9.9 gm/dl (11.8-15.2); Mean Corpuscular HGB Conc 34 % (32-34); Mean Corpuscular Hemoglobin 27 pg (28-32); Mean Corpuscular Volume 80 fl (84-94); Platelet Count 192 K/mm3 (140-440); Red Blood Count 3.66 M/mm3 (3.65-5.03); Red Cell Distribution Width 16.6 % (13.2-15.2); White Blood Count 5.4 K/mm3 (4.5-11.0)
[2017-07-20 07:30] LABS: Albumin 3.6 g/dL (3.9-5); Albumin/Globulin Ratio 1.4 %; Bilirubin,Total 0.2 mg/dL (0.1-1.2); Calcium 7.7 mg/dL (8.4-10.2); Chloride 94.4 mmol/L (98-107); Potassium 4.2 mmol/L (3.6-5.0); Total Protein 6.1 g/dL (6.3-8.2)
[2017-07-20] MEDS: RENVELA PO SCH ×3 (08:35→16:09)
[2017-07-20] MEDS: NOVOLOG SUB-Q SCH ×3 (08:36→16:09)
--- NOTE | 2017-07-20 09:19 | Progress Note ---
Subjective - Reason for Consult Consult date: 07/20/17 Reason for consult: Psychiatry Follow-up - Chief Complaint Chief complaint: "How are you" Mr Trejo is a 56 y/o M with a past medical history of ESRD, hemodialysis, DM, HTN, legally blind, who presented to the [facility] with suicidal ideation. Today patient is calm and cooperative during the assessment. Per collateral from his spouse Ms Trejo, she stated that her need a professional to talk with reference coping. She stated that she does not feel that her was suicidal on admission. She denies any prior attempts at suicide by her . She stated that she would take her to his outpatient psy services appts. The patient denies SI/HI's and AVH's. He denies sleep disturbance and any side effects of his medications. 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 Today patient is calm and cooperative during the assessment. Patient is visually impaired. Recommendation: Rescind 1013. Continue Prozac and Trazodone as ordered by the medical team. Discusses possible suicidality/medication induced genevieve/priapism ( Trazodone) with patient reference antidepressants. Recommended Intensive Outpatient services (IOP) with [facility] once discharged, patient agreed. Also, patient given outpatient psy services for [facility] if he cannot attend IOP. Discussed generalize coping skills with patient.
--- NOTE | 2017-07-20 10:46 | Progress Note ---
Assessment and Plan (1) End stage renal disease Current Visit: Yes Status: Acute Plan to address problem: HD today for clearance and volume removal Fluid restriction of 1 liter per day Avoid Nephrotoxic agents Renally dose medications Monitor I/O's Assess dialysis needs daily (2) Suicidal ideation Current Visit: Yes Status: Acute Plan to address problem: On Prozac and Trazadone. Psychiatry onboard (3) HTN (hypertension) Current Visit: Yes Status: Acute Plan to address problem: Blood pressures are controlled (4) Type 2 diabetes mellitus with diabetic chronic kidney disease Current Visit: No Status: Chronic Plan to address problem: On insulin therapy as per primary team Subjective Date of service: 07/20/17 Principal diagnosis: ESRD Interval history: denies chest pain and SOB, comfortable Objective - Vital Signs Vital signs: Vital Signs - 12hr 07/20/17 05:24 Temperature 98.3 F Pulse Rate 62 Respiratory 16 Rate Blood Pressure 115/68 O2 Sat by Pulse 99 Oximetry - General Appearance General appearance: well-developed, well-nourished, appears stated age EENT: ATNC, PERRL, mucous membranes moist Neck: no JVD, no carotid bruit Respiratory: Present: Clear to Ascultation. Absent: Rales, Ronchi Cardiology: regular, S1S2 Gastrointestinal: normoactive bowel sounds, no tenderness, no distended Integumentary: no rash, warm and dry Neurologic: no focal deficit, no asterixis, alert and oriented x3 Musculoskeletal: other (no edema in BLE) Psychiatric: mood/affect appropriate, cooperative - Lab 07/20/17 05:58 07/20/17 05:58 Most recent lab results Calcium 7.7 mg/dL (8.4-10.2) L 07/20/17 05:58
[2017-07-20] MEDS: ASPIRIN PO SCH (13:27)
[2017-07-20] MEDS: HEPARIN SUB-Q SCH ×2 (13:28→21:36)
[2017-07-20] MEDS: LOPRESSOR PO SCH ×2 (13:28→21:35)
[2017-07-20] MEDS: SENSIPAR PO SCH (13:30)
[2017-07-20] MEDS: NEURONTIN PO SCH (13:30)
[2017-07-20] MEDS: NORVASC PO SCH (13:30)
[2017-07-20] MEDS: ZAROXOLYN PO SCH (13:30)
[2017-07-20] MEDS: PROzac PO SCH (13:30)
[2017-07-20] MEDS: ZESTRIL PO SCH (13:31)
--- NOTE | 2017-07-20 13:42 | Progress Note ---
Assessment and Plan /possible Pseudoseizure negative ct head, eeg done, neuro consulted cont as needed ativan and will not resume keppra for now as likely to have pseudoseisure will follow EEG report /Suicidal ideation 1013 in placed, 1:1 Sitter, psychiatry consulted, cont home meds for now, denies any SI/HI plan to rescind 1013 and possible d/c in the am /Hyperkalemia Likely from end-stage renal disease Treated in the ER with calcium gluconate and Kayexalate Monitor potassium level, should improve with hemodialysis We'll also place him on as needed Kayexalate if k >5.2 /HTN (hypertension) Monitor BP q shift, continue medical management with home meds /Diabetes type 2 ADA diet, insulin, Accu check /End stage renal disease Nephrology consulted for dialysis, fluid restriction, monitor uop q shift, /elevated troponin - likely from ESRD, no c/o chest pain /DVT prophylaxis Heparin Brief history: Mr Trejo is a 56 y/o M with a PMH of ESRD on HD TTS via LUE AVF, Hepatitis, DM , HTN who presents to the [facility] with suicidal ideation. Patient denies any active attempts but states he's had a plan to either cut his arm, pulling his hemodialysis needles out or push himself in front of a car. His last dialysis was 2 days ago before this admission. Radiological data: CXR - no infiltrates or pulmonary edema Hospitalist Physical exam: GENERAL: well-developed and well-nourished AAM lying on bed appeared to be in no discomfort. HEENT: Normocephalic. Atraumatic. No conjunctival congestion or icterus. Patient has moist mucous membranes. Patient is legally blind. NECK: Supple. Trachea midline. CHEST/LUNGS: Clear to auscultated bilaterally, breathing nonlabored. No wheezes crackles or rhonchi. HEART/CARDIOVASCULAR: Regular in rate and rhythm. S1 and S2 positive. ABDOMEN: Abdomen is soft, nontender. Patient has normal bowel sounds. SKIN: There is no rash. Warm and dry. NEURO: No focal motor deficit. MUSCULOSKELETAL: No joint effusion or tenderness. EXTRIMITY: No edema, no cyanosis or clubbing. PSYCH: appears mentally stressed. Subjective Date of service: 07/19/17 Principal diagnosis: ESRD Interval history: Medical records and medication list reviewed. plan to rescind 1013 and possible d/c in the am after HD patient has no new issue, no seizure like spell Objective - Constitutional Vitals: Vital Signs - 12hr 07/20/17 05:24 Temperature 98.3 F Pulse Rate 62 Respiratory 16 Rate Blood Pressure 115/68 O2 Sat by Pulse 99 Oximetry - Labs CBC & Chem 7: 07/20/17 05:58 07/20/17 05:58 Labs: Abnormal lab results 07/19/17 07/19/17 07/20/17 Range/Units 17:00 21:55 05:35 Hgb (11.8-15.2) gm/dl Hct (35.5-45.6) % MCV (84-94) fl MCH (28-32) pg RDW (13.2-15.2) % Lymph % (Auto) (13.4-35.0) % Beadle % (Auto) (0.0-7.3) % Chloride (98-107) mmol/L BUN (9-20) mg/dL Creatinine (0.8-1.5) mg/dL Glucose (75-100) mg/dL POC Glucose 148 H 232 H 120 H (70-105) Calcium (8.4-10.2) mg/dL Total Protein (6.3-8.2) g/dL Albumin (3.9-5) g/dL 07/20/17 07/20/17 Range/Units 05:58 05:58 Hgb 9.9 L (11.8-15.2) gm/dl Hct 29.2 L (35.5-45.6) % MCV 80 L (84-94) fl MCH 27 L (28-32) pg RDW 16.6 H (13.2-15.2) % Lymph % (Auto) 35.9 H (13.4-35.0) % Beadle % (Auto) 9.7 H (0.0-7.3) % Chloride 94.4 L (98-107) mmol/L BUN 75 H (9-20) mg/dL Creatinine 9.1 H (0.8-1.5) mg/dL Glucose 111 H (75-100) mg/dL POC Glucose (70-105) Calcium 7.7 L (8.4-10.2) mg/dL Total Protein 6.1 L (6.3-8.2) g/dL Albumin 3.6 L (3.9-5) g/dL
[2017-07-20 21:33] VITALS: BP 127/67
[2017-07-20] MEDS: DESYREL PO SCH (21:36)
[2017-07-20] MEDS: LEVEMIR SUB-Q SCH (21:37)
== END 2017-07-20 22:16 | disposition home or self-care (01) | DRG 682 ==
LOC: ED 08:36 → 3A 11:38
PROVIDERS: ADMIT Internal Medicine; ATTEND Internal Medicine
PROC: 5A1D70Z Performance of Urinary Filtration, Intermittent, Less than 6 Hours Per Day (ICD-10-PCS; principal; 2017-07-15)
PROC: 5A1D70Z Performance of Urinary Filtration, Intermittent, Less than 6 Hours Per Day (ICD-10-PCS; 2017-07-17)
PROC: 5A1D70Z Performance of Urinary Filtration, Intermittent, Less than 6 Hours Per Day (ICD-10-PCS; 2017-07-20)
DX: I12.0 Hypertensive chronic kidney disease with stage 5 chronic kidney disease or end stage renal disease (principal); J96.00 Acute respiratory failure, unspecified whether with hypoxia or hypercapnia; N18.6 End stage renal disease; R45.851 Suicidal ideations; B18.1 Chronic viral hepatitis B without delta-agent; E87.5 Hyperkalemia; K21.9 Gastro-esophageal reflux disease without esophagitis; E11.22 Type 2 diabetes mellitus with diabetic chronic kidney disease; E78.5 Hyperlipidemia, unspecified; H54.8 Legal blindness, as defined in USA; R56.9 Unspecified convulsions; F32.9 Major depressive disorder, single episode, unspecified; D63.1 Anemia in chronic kidney disease; Z90.49 Acquired absence of other specified parts of digestive tract; Z86.73 Personal history of transient ischemic attack (TIA), and cerebral infarction without residual deficits; Z82.49 Family history of ischemic heart disease and other diseases of the circulatory system; Z88.5 Allergy status to narcotic agent; Z88.8 Allergy status to other drugs, medicaments and biological substances; Z99.2 Dependence on renal dialysis; Z83.3 Family history of diabetes mellitus; Z91.010 Allergy to peanuts
CPT/HCPCS: 36415; 70450; 71010; 80048; 80053; 80061; 80320; 82962; 84484; 85025; 93306; 99285; A9270-GY; G0480; J0360; J0610; J1644; J1815; J1818; J1953; J2060; J2405; J7030; Q0162

== ENCOUNTER 2018-10-15 07:52 | Inpatient (IN) | payer OTHER, MEDICARE ==
[2018-10-15 08:50] LABS: Basophils # (Auto) 0.1 K/mm3 (0.0-0.1); Basophils % (Auto) 1.1 % (0.0-1.8); Eosinophils # (Auto) 0.2 K/mm3 (0.0-0.4); Eosinophils % (Auto) 3.3 % (0.0-4.3); Hematocrit 35.4 % (35.5-45.6); Hemoglobin 11.7 gm/dl (11.8-15.2); Lymphocytes # (Auto) 1.3 K/mm3 (1.2-5.4); Lymphocytes % (Auto) 21.4 % (13.4-35.0); Mean Corpuscular HGB Conc 33 % (32-34); Mean Corpuscular Volume 88 fl (84-94); Monocytes # (Auto) 0.7 K/mm3 (0.0-0.8); Monocytes % (Auto) 11.6 % (0.0-7.3); Platelet Count 184 K/mm3 (140-440); Red Blood Count 4.03 M/mm3 (3.65-5.03); Red Cell Distribution Width 18.9 % (13.2-15.2)
[2018-10-15 08:55] LABS: Calcium 9.2 mg/dL (8.4-10.2)
[2018-10-15] MEDS ORDERED: ZOFRAN IV ONE (10:25)
--- NOTE | 2018-10-15 10:31 | Emergency Department Report ---
HPI - General Chief Complaint: Hyperglycemia Time Seen by Provider: 10/15/18 10:08 - HPI HPI: Room 24 The patient is a 57-year-old male presenting with a chief complaint glycemia. The patient states he went to hemodialysis this morning and there is found to be hyperglycemic with a blood glucose in the 500s. Hemodialysis was not performed and the patient was subsequent was into the ED. In the ED the patient states he is "not feeling too good." When asked to expound on this he states he's felt confused for the past week abdominal pain intermittently for the past month. Patient is to nausea and a decreased appetite. Patient states she's had a cough for 1 week. Patient admits to a fever of 101F. The patient went to an urgent care facility yesterday and was started on doxycycline Location: [See above] Duration: [See above] Quality: [See above] Severity: [See above] Modifying factors: [see above] Context: [see above] Mode of transportation: [not driving] ED Past Medical Hx - Past Medical History Hx Hypertension: Yes (high chol.) Hx Diabetes: Yes Hx GERD: Yes Hx Liver Disease: Yes (HEP B) Hx Renal Disease: Yes (ESRD) Additional medical history: hepatitis B. TIA. Legally blind - Surgical History Hx Cholecystectomy: Yes - Family History Family history: no significant - Social History Smoking Status: Never Smoker Substance Use Type: None (denies illicit drug use) - Medications Home Medications: Home Medications Medication Instructions Recorded Confirmed Last Taken Type AtorvaSTATin [Lipitor] 40 mg PO QHS #30 tablet 12/03/15 07/16/17 01/27/16 Rx amLODIPine [Norvasc] 10 mg PO QDAY #30 tablet 12/03/15 07/16/17 01/28/16 Rx hydrALAZINE [Apresoline TAB] 25 mg PO Q8HR #90 tablet 12/03/15 07/16/17 01/28/16 Rx metOLazone [Zaroxolyn] 5 mg PO QDAY 01/28/16 07/16/17 01/28/16 History Aspirin 325 mg PO DAILY 07/18/17 07/18/17 Unknown History Clonidine 0.1 mg PO Q8HR PRN 07/18/17 07/18/17 Unknown History Colace CAP 100 mg PO BID PRN 07/18/17 07/18/17 Unknown History Detemir (Nf) [Levemir (Nf)] 12 units SC HS 07/18/17 07/18/17 Unknown History Fluoxetine HCl 40 mg PO DAILY 07/18/17 07/18/17 Unknown History Gabapentin 100 mg PO DAILY 07/18/17 07/18/17 Unknown History Humalog 2 units SC AC 07/18/17 07/18/17 Unknown History Lisinopril 20 mg PO DAILY 07/18/17 07/18/17 Unknown History Metoprolol 50 mg PO BID 07/18/17 07/18/17 Unknown History Ondansetron TAB 4 mg PO Q8H 07/18/17 07/18/17 Unknown History Protonix TAB 40 mg PO DAILY 07/18/17 07/18/17 Unknown History Sensipar 30 mg PO MOTUWETHFR 07/18/17 07/18/17 Unknown History Sevelamer Carbonate 1,600 tab PO AC 07/18/17 07/18/17 Unknown History traZODone [Desyrel] 50 mg PO HS 07/18/17 07/18/17 Unknown History ED Review of Systems ROS: Stated complaint: HIGH BLOOD SUGAR Other details as noted in HPI Constitutional: fever Eyes: denies: eye pain ENT: denies: throat pain Respiratory: cough Cardiovascular: denies: chest pain Endocrine: other (hyperglycemia) Gastrointestinal: abdominal pain, nausea Genitourinary: denies: dysuria Musculoskeletal: myalgia Neurological: confusion Physical Exam - Physical Exam Vital Signs: Vital Signs 10/15/18 09:06 Temperature 98 F Pulse Rate 73 Respiratory 16 Rate Blood Pressure 146/73 [Left] O2 Sat by Pulse 98 Oximetry Physical Exam: GENERAL: The patient is well-developed well-nourished male lying on stretcher slow to respond but answering questions appropriately. [] HEENT: Normocephalic. Atraumatic. Extraocular motions are intact. Patient has moist mucous membranes. Legally blind NECK: Supple. No meningitic signs are noted. Trachea midline CHEST/LUNGS: Clear to auscultation. There is no respiratory distress noted. HEART/CARDIOVASCULAR: Regular. There is no tachycardia. There is no gallop rub or murmur. ABDOMEN: Abdomen is soft, with mild discomfort to palpation in the left upper and left lower quadrants. Patient has normal bowel sounds. There is no abdominal distention. SKIN: There is no rash. There is no edema. There is no diaphoresis. NEURO: The patient is awake, somewhat slow to respond but answers appropriately.. The patient is cooperative. The patient has no focal neurologic deficits. The patient has normal speech. Cranial nerves III through XII grossly intact MUSCULOSKELETAL: There is no evidence of acute injury. ED Course Vital Signs 10/15/18 09:06 Temperature 98 F Pulse Rate 73 Respiratory 16 Rate Blood Pressure 146/73 [Left] O2 Sat by Pulse 98 Oximetry ED Medical Decision Making - Lab Data Result diagrams: 10/15/18 08:22 10/15/18 08:22 Laboratory Tests 10/15/18 10/15/18 10/15/18 08:22 08:22 08:22 WBC 6.1 RBC 4.03 Hgb 11.7 L Hct 35.4 L MCV 88 MCH 29 MCHC 33 RDW 18.9 H Plt Count 184 Lymph % (Auto) 21.4 Harding % (Auto) 11.6 H Eos % (Auto) 3.3 Baso % (Auto) 1.1 Lymph # 1.3 Harding # 0.7 Eos # 0.2 Baso # 0.1 Seg Neutrophils % 62.6 Seg Neutrophils # 3.8 VBG pH 7.409 Sodium 135 L Potassium 4.9 Chloride 85.0 L Carbon Dioxide 35 H Anion Gap 20 BUN 52 H Creatinine 9.4 H Estimated GFR 7 BUN/Creatinine Ratio 6 Glucose 374 H Calcium 9.2 Ammonia TSH Free T4 10/15/18 10/15/18 10:39 10:39 WBC RBC Hgb Hct MCV MCH MCHC RDW Plt Count Lymph % (Auto) Harding % (Auto) Eos % (Auto) Baso % (Auto) Lymph # Harding # Eos # Baso # Seg Neutrophils % Seg Neutrophils # VBG pH Sodium Potassium Chloride Carbon Dioxide Anion Gap BUN Creatinine Estimated GFR BUN/Creatinine Ratio Glucose Calcium Ammonia 28.0 TSH 1.220 Free T4 1.31 - Radiology Data Radiology results: report reviewed (CT head, CT abdomen and pelvis, chest x- ray), image reviewed (CT head, CT abdomen and pelvis, chest x-ray) interpreted by me: Chest x-ray-no focal infiltrate, no pneumothorax Findings [facility] [address] [place] [address] Cat Scan Report Signed Patient: STEPHON SHOEMAKER MR#: [id number] 1000 : 1960 Acct:[id number] Age/Sex: 57 / M ADM Date: 10/15/18 Loc: ED Attending Dr: Ordering Physician: CURT DOAN MD Date of Service: 10/15/18 Procedure(s): CT head/brain wo con Accession Number(s): [id number] cc: CURT DOAN MD PROCEDURE: CT HEAD/BRAIN WO CON TECHNIQUE: Computerized tomography of the head was performed without contrast material. CT DOSE LENGTH PRODUCT: 805.42 mGy-cm. HISTORY: altered mental status, confusion COMPARISONS: None currently available. FINDINGS: There is no evidence for acute ischemia. There is no hemorrhage. There is no midline shift. There is no hydrocephalus. There is no mass. Age appropriate singleton-white matter attenuation is noted. There is no calvarial fracture. The temporal bones demonstrate aerated mastoid air cells. The middle ears appear unremarkable. Opacified left frontal sinus. Partially opacified left ethmoid air cells. Mild mucosal thickening in bilateral posterior ethmoid air cells. Globes are intact. IMPRESSION: * No acute intracranial findings. * Sinus disease. This document is electronically signed by Chele Olivera MD., October 15 2018 12:03:59 PM ET Transcribed By: TYM Dictated By: CHELE OLIVERA MD Electronically Authenticated By: CHELE OLIVERA MD Signed Date/Time: 10/15/18 1205 DD/ 1126 TD/TT: 10/15/18 1127 [facility] [address] [place] [address] Cat Scan Report Signed Patient: STEPHON SHOEMAKER MR#: [id number] 1000 : 1960 Acct:[id number] Age/Sex: 57 / M ADM Date: 10/15/18 Loc: ED Attending Dr: Ordering Physician: CURT DOAN MD Date of Service: 10/15/18 Procedure(s): CT abdomen pelvis wo con Accession Number(s): [id number] cc: CURT DOAN MD PROCEDURE: CT ABDOMEN PELVIS WO CON TECHNIQUE: Computerized axial tomography of the abdomen and pelvis was performed without intravenous contrast. This study is performed without intravascular contrast material and its sensitivity for abdominal and pelvic pathology, including neoplasms, inflammation, abscess, free fluid, thrombosis, arterial dissection and infarction, is reduced compared with a contrast enhanced study. CT DOSE LENGTH PRODUCT: 1212.06 mGy-cm. HISTORY: left-sided abdominal pain, nausea COMPARISONS: CT abdomen and pelvis November 25, 2015. FINDINGS: Abdomen: Minimal bibasilar dependent subsegmental atelectasis. Mild cardiomegaly. No coronary artery disease. Biliary: Prominent common bile duct may be related to prior cholecystectomy. No obvious ductal stone or lesion. Adrenals: Hyperplasia of both adrenal glands is nonspecific. Liver, stomach, spleen, and pancreas are unremarkable. Kidneys: No hydronephrosis. No nephroureteral stones. Bilateral perinephric stranding identified. No aneurysm. Hyyp-kl-mycpspvs atherosclerotic disease. IVC is unremarkable. There is no periaortic or retroperitoneal adenopathy or mass. Mild wall thickening of the descending colon down to the rectum without stranding. Some diverticulosis noted. Also the remainder of the colon without wall thickening. Terminal ileum is unremarkable. The appendix is not identified. There are no pericecal inflammatory changes. Small bowel loops are unremarkable. No obstructive pattern. No air-fluid levels. No free air. No free fluid. Mesentery is unremarkable. Pelvis: Prominent heterogeneous prostate. Bladder: Unremarkable. No wall thickening or stone. There is no pelvic mass or adenopathy. Inguinal regions are unremarkable. Bones: No suspicious osseous lesions on this limited examination of the skeleton. Metastatic disease better evaluated with bone scan. IMPRESSION: * Comparison with prior will be made as an addendum once requested prior images and report are provided. * Nonspecific bilateral perinephric stranding. Please correlate for possible pyelonephritis. No hydronephrosis. No nephroureteral stones. * Indeterminate mild hyperplasia of both adrenal glands. * Mild wall thickening of the descending colon and sigmoid colon may represent chronic or mild colitis or diverticulitis. Differential diagnosis includes normal variation and mild enterocolitis. No perforation, abscess, or obstruction. This document is electronically signed by Chele Olivera MD., October 15 2018 12:08:28 PM ET Transcribed By: TYM Dictated By: CHELE OLIVERA MD Electronically Authenticated By: CHELE OLIVERA MD Signed Date/Time: 10/15/18 1210 Report Status: Finalized [facility] [address] [place] [address] XRay Report Signed Patient: STEPHON SHOEMAKER MR#: [id number] 1000 : 1960 Acct:[id number] Age/Sex: 57 / M ADM Date: 10/15/18 Loc: ED Attending Dr: Ordering Physician: CURT DOAN MD Date of Service: 10/15/18 Procedure(s): XR chest 1V ap Accession Number(s): [id number] cc: CURT DOAN MD Fluoro Time In Minutes: EXAM: XR CHEST 1V AP HISTORY: cough TECHNIQUE: AP CXR dated 10/15/2018 at 11:39 AM. COMPARISON: None available. FINDINGS: The heart size and mediastinum are within normal limits. The lung quevedo and costophrenic angles are clear. There is no acute parenchymal infiltrate, pleural effusion, or pneumothorax seen. The visualized bony structures are within normal limits. IMPRESSION: 1. No evidence for acute cardiopulmonary disease seen. This document is electronically signed by Logan Zelaya MD., October 15 2018 12:43:36 PM ET Transcribed By: ASM Dictated By: LOGAN ZELAYA Electronically Authenticated By: LOGAN ZELAYA Signed Date/Time: 10/15/18 1245 DD/ 1159 TD/TT: 10/15/18 1159 - Differential Diagnosis hyperglycemia, DKA, AMS, ICH, diverticulitis, pneumonia Critical care attestation.: If time is entered above; I have spent that time in minutes in the direct care of this critically ill patient, excluding procedure time. ED Disposition Clinical Impression: Altered mental status, Diverticulitis, Acute abdominal pain, End stage renal disease on dialysis Disposition: OP ADMIT IP TO THIS HOSP Is pt being admited?: Yes Does the pt Need Aspirin: No Condition: Stable Referrals: DANDRE GLASER [Other] - 3-5 Days Time of Disposition: 12:31 (hospitalist paged (Dr Spencer))
[2018-10-15 11:30] LABS: Free T4 (Free Thyroxine) 1.31 ng/dL (0.76-1.46)
--- NOTE | 2018-10-15 12:05 | Cat Scan Report ---
PROCEDURE: CT HEAD/BRAIN WO CON TECHNIQUE: Computerized tomography of the head was performed without contrast material. CT DOSE LENGTH PRODUCT: 805.42 mGy-cm. HISTORY: altered mental status, confusion COMPARISONS: None currently available. FINDINGS: There is no evidence for acute ischemia. There is no hemorrhage. There is no midline shift. There is no hydrocephalus. There is no mass. Age appropriate singleton-white matter attenuation is noted. There is no calvarial fracture. The temporal bones demonstrate aerated mastoid air cells. The middle ears appear unremarkable. Opacified left frontal sinus. Partially opacified left ethmoid air cells. Mild mucosal thickening in bilateral posterior ethmoid air cells. Globes are intact. IMPRESSION: * No acute intracranial findings. * Sinus disease. This document is electronically signed by Chele Thomas MD., October 15 2018 12:03:59 PM ET
--- NOTE | 2018-10-15 12:10 | Cat Scan Report ---
PROCEDURE: CT ABDOMEN PELVIS WO CON TECHNIQUE: Computerized axial tomography of the abdomen and pelvis was performed without intravenous contrast. This study is performed without intravascular contrast material and its sensitivity for ab dominal and pelvic pathology, including neoplasms, inflammation, abscess, free fluid, thrombosis, art erial dissection and infarction, is reduced compared with a contrast enhanced study. CT DOSE LENGTH PRODUCT: 1212.06 mGy-cm. HISTORY: left-sided abdominal pain, nausea COMPARISONS: CT abdomen and pelvis November 25, 2015. FINDINGS: Abdomen: Minimal bibasilar dependent subsegmental atelectasis. Mild cardiomegaly. No coronary artery disease. Biliary: Prominent common bile duct may be related to prior cholecystectomy. No obvious ductal stone or lesion. Adrenals: Hyperplasia of both adrenal glands is nonspecific. Liver, stomach, spleen, and pancreas are unremarkable. Kidneys: No hydronephrosis. No nephroureteral stones. Bilateral perinephric stranding identified. No aneurysm. Hoeo-jo-xjxsylwf atherosclerotic disease. IVC is unremarkable. There is no periaortic or retroperitoneal adenopathy or mass. Mild wall thickening of the descending colon down to the rectum without stranding. Some diverticulosi s noted. Also the remainder of the colon without wall thickening. Terminal ileum is unremarkable. The appendix is not identified. There are no pericecal inflammatory changes. Small bowel loops are unremarkable. No obstructive pattern. No air-fluid levels. No free air. No free fluid. Mesentery is unremarkable. Pelvis: Prominent heterogeneous prostate. Bladder: Unremarkable. No wall thickening or stone. There is no pelvic mass or adenopathy. Inguinal regions are unremarkable. Bones: No suspicious osseous lesions on this limited examination of the skeleton. Metastatic disease better evaluated with bone scan. IMPRESSION: * Comparison with prior will be made as an addendum once requested prior images and report are provi ded. * Nonspecific bilateral perinephric stranding. Please correlate for possible pyelonephritis. No hydr onephrosis. No nephroureteral stones. * Indeterminate mild hyperplasia of both adrenal glands. * Mild wall thickening of the descending colon and sigmoid colon may represent chronic or mild colit is or diverticulitis. Differential diagnosis includes normal variation and mild enterocolitis. No per foration, abscess, or obstruction. This document is electronically signed by Chele Thomas MD., October 15 2018 12:08:28 PM ET
--- NOTE | 2018-10-15 12:45 | XRay Report ---
EXAM: XR CHEST 1V AP HISTORY: cough TECHNIQUE: AP CXR dated 10/15/2018 at 11:39 AM. COMPARISON: None available. FINDINGS: The heart size and mediastinum are within normal limits. The lung quevedo and costophrenic angles are clear. There is no acute parenchymal infiltrate, pleural effusion, or pneumothorax seen. The visua lized bony structures are within normal limits. IMPRESSION: 1. No evidence for acute cardiopulmonary disease seen. This document is electronically signed by Meenakshi Norton MD., October 15 2018 12:43:36 PM ET
[2018-10-15] MEDS ORDERED: LEVAQUIN PO ONE (13:04)
[2018-10-15] MEDS ORDERED: FLAGYL PO ONE (13:04)
[2018-10-15] MEDS ORDERED: ZOFRAN IV PRN (13:07)
[2018-10-15] MEDS ORDERED: SODIUM CHLORIDE FLUSH SYRINGE 10 ML IV PRN (13:07)
[2018-10-15] MEDS ORDERED: PROVENTIL IH PRN (13:07)
--- NOTE | 2018-10-15 13:07 | History and Physical Report ---
History of Present Illness Chief complaint: They sent me here from dialysis History of present illness: 57 YO Male with ESRD on HD(T,R,Sa), HTN, DM, GERD, HBV, HLD, TIA, presents to ED for evaluation. Pt state that he has not been feeling good over the past 3 days. Pt acknowledges feeling weak, with multiple episodes of nausea, polyuria, polydipsia, as well as increased confusion . Pt presented to dislysis unit for routine dialysis and was found to have a serum glucose above 500. EMS notified, and upon arrival the patient was found to be in distress. Pt transported to [facility] for further care. Pt seen and evaluated in ED and found to have Colitis, ESRD, and Uncontrolled Hyperglycemia. Pt admitted to medical floor. GI consulted in ED. Nephrology consulted in ED for dialysis. Pt denies fever, chills, CP, Palpitations, hematemesis, BRBPR, skin rash, or recent ill contacts. Past History Past Medical History: diabetes, ESRD, GERD, hepatitis, hypertension, stroke Past Surgical History: Other (Dalysis access) Social history: , lives with family. denies: smoking, alcohol abuse, prescription drug abuse Family history: diabetes, hypertension Medications and Allergies Allergies Allergy/AdvReac Type Severity Reaction Status Date / Time peanut Allergy Hives Verified 07/15/17 22:29 prochlorperazine Allergy Swelling Verified 09/24/15 16:42 [From Compazine] prochlorperazine edisylate Allergy Swelling Verified 09/24/15 16:42 [From Compazine] prochlorperazine maleate Allergy Swelling Verified 09/24/15 16:42 [From Compazine] acetaminophen [From Percocet] AdvReac Vomiting Verified 09/24/15 16:42 oxycodone HCl [From Percocet] AdvReac Vomiting Verified 09/24/15 16:42 Home Medications Medication Instructions Recorded Confirmed Last Taken Type AtorvaSTATin [Lipitor] 40 mg PO QHS #30 tablet 12/03/15 07/16/17 01/27/16 Rx amLODIPine [Norvasc] 10 mg PO QDAY #30 tablet 12/03/15 07/16/17 01/28/16 Rx hydrALAZINE [Apresoline TAB] 25 mg PO Q8HR #90 tablet 12/03/15 07/16/17 01/28/16 Rx metOLazone [Zaroxolyn] 5 mg PO QDAY 01/28/16 07/16/17 01/28/16 History Aspirin 325 mg PO DAILY 07/18/17 07/18/17 Unknown History Clonidine 0.1 mg PO Q8HR PRN 07/18/17 07/18/17 Unknown History Colace CAP 100 mg PO BID PRN 07/18/17 07/18/17 Unknown History Detemir (Nf) [Levemir (Nf)] 12 units SC HS 07/18/17 07/18/17 Unknown History Fluoxetine HCl 40 mg PO DAILY 07/18/17 07/18/17 Unknown History Gabapentin 100 mg PO DAILY 07/18/17 07/18/17 Unknown History Humalog 2 units SC AC 07/18/17 07/18/17 Unknown History Lisinopril 20 mg PO DAILY 07/18/17 07/18/17 Unknown History Metoprolol 50 mg PO BID 07/18/17 07/18/17 Unknown History Ondansetron TAB 4 mg PO Q8H 07/18/17 07/18/17 Unknown History Protonix TAB 40 mg PO DAILY 07/18/17 07/18/17 Unknown History Sensipar 30 mg PO MOTUWETHFR 07/18/17 07/18/17 Unknown History Sevelamer Carbonate 1,600 tab PO AC 07/18/17 07/18/17 Unknown History traZODone [Desyrel] 50 mg PO HS 07/18/17 07/18/17 Unknown History Review of Systems Constitutional: no weight loss, no weight gain, no fever, no chills Ears, nose, mouth and throat: no ear pain, no ear discharge, no tinnitis, no decreased hearing, no nose pain, no nasal congestion Cardiovascular: no chest pain, no orthopnea, no palpitations, no edema Respiratory: no cough, no cough with sputum, no excessive sputum, no hemoptysis Gastrointestinal: abdominal pain, nausea, vomiting Genitourinary Male: no hematuria, no flank pain, no discharge, no urinary frequency, no urinary hesitancy Rectal: no pain, no incontinence, no bleeding Musculoskeletal: no neck stiffness, no neck pain, no leg numbness/tingling Integumentary: no rash, no pruritis, no redness, no sores Neurological: no head injury, no transient paralysis, no paralysis, no weakness, no parathesias, no numbness, no tingling, no seizures, no syncope Psychiatric: no anxiety, no change in sleep habits, no insomnia, no hypersomnia, no change in appetite Endocrine: polyphagia, excessive thirst, polydipsia, no cold intolerance, no weight change Hematologic/Lymphatic: no easy bruising, no easy bleeding, no lymphadenopathy, no lymphedema Allergic/Immunologic: no urticaria, no allergic rhinitis, no wheezing, no anaphylaxis Exam - Constitutional Vitals: Temp Pulse Resp BP Pulse Ox 98 F 73 16 146/73 98 10/15/18 09:06 10/15/18 09:06 10/15/18 09:06 10/15/18 09:06 10/15/18 09:06 General appearance: Present: mild distress - EENT Eyes: Present: PERRL ENT: hearing intact, clear oral mucosa - Neck Neck: Present: supple, normal ROM - Respiratory Respiratory effort: normal Respiratory: bilateral: CTA - Cardiovascular Heart Sounds: Present: S1 & S2. Absent: rub, click - Extremities Extremities: pulses symmetrical, No edema Peripheral Pulses: within normal limits - Abdominal General gastrointestinal: Present: soft, non-tender, non-distended, normal bowel sounds Male genitourinary: Present: normal - Integumentary Integumentary: Present: clear, warm, dry - Musculoskeletal Musculoskeletal: gait normal, strength equal bilaterally - Psychiatric Psychiatric: appropriate mood/affect, intact judgment & insight - Neurologic Neurologic: CNII-XII intact, moves all extremities Results - Labs CBC & Chem 7: 10/15/18 08:22 10/15/18 08:22 Labs: Abnormal lab results 10/15/18 10/15/18 Range/Units 08:22 08:22 Hgb 11.7 L (11.8-15.2) gm/dl Hct 35.4 L (35.5-45.6) % RDW 18.9 H (13.2-15.2) % [place] % (Auto) 11.6 H (0.0-7.3) % Sodium 135 L (137-145) mmol/L Chloride 85.0 L (98-107) mmol/L Carbon Dioxide 35 H (22-30) mmol/L BUN 52 H (9-20) mg/dL Creatinine 9.4 H (0.8-1.5) mg/dL Glucose 374 H (75-100) mg/dL Assessment and Plan - Patient Problems (1) End stage renal disease on dialysis Current Visit: Yes Status: Acute Plan to address problem: Nephrology consulted in ED, strict I/O, daily weight, monitor uop q shift, avoid nephrotoxic agents. (2) Colitis Current Visit: Yes Status: Acute Plan to address problem: IV steroid therapy, GI consulted, stool studies, CT Abdomen/Pelvis, serial abdominal exam. (3) Diabetes Current Visit: No Status: Acute Plan to address problem: ADA diet, insulin, accu check (4) HTN (hypertension) Current Visit: No Status: Acute Qualifiers: Hypertension type: essential hypertension Qualified Code(s): I10 - Essential (primary) hypertension Plan to address problem: monitor bp q shift, continue medical management. (5) DVT prophylaxis Current Visit: No Status: Acute Plan to address problem: SCD to BLE while in bed.
[2018-10-15] MEDS ORDERED: D50W (25GM) Syringe IV PRN (13:12)
[2018-10-15 15:25] LABS: Bilirubin,Urine NEG (Negative); Blood,Urine NEG (Negative); Color,Urine Straw (Yellow); Urobilinogen,Urine < 2.0 mg/dL (<2.0)
[2018-10-15 15:26] LABS: Protein,Urine >500 mg/dL (Negative)
[2018-10-15] MEDS ORDERED: NACL 0.9% 100 ML IV PRN (15:47)
[2018-10-15] MEDS ORDERED: HEPARIN 10,000 UNITS/10 ML IV ONE (16:00)
[2018-10-15] MEDS ORDERED: NON-FORMULARY (Clonidine 0.1 MG) PO PRN (16:32)
[2018-10-15] MEDS ORDERED: ONDANSETRON 4 MG PO SCH (16:45)
--- NOTE | 2018-10-15 16:59 | Consultation ---
History of Present Illness - Reason for Consult Consult date: 10/15/18 end stage renal disease Requesting physician: JUSTICE RAZO - History of Present Illness This is a 57 y/o male with PMH of ESRD on HD, HTN, DM Type 2 on insulin, left eye blindness, right eye blurry vision (chronic), hepatitis B per pt, GERD, TIA and hyperlipidemia who presented to [facility] today with c/o nausea, vomiting, abdominal pain, chills, weakness, and confusion. Pt went to HD today and was found to have elevated blood glucose level >500, EMS was called. Pt was transported via EMS to [facility] for further evaluation. Pt states his blood glucose levels have been high over the past week. Pt found to have colitis. GI consulted. This pt undergoes outpatient HD at [facility] every TTS. We were consulted to evaluate this pt who has ESRD. I d/w dialysis nurses about pt having Hepatitis B, acute hepatitis panel also ordered. . Past History Past Medical History: diabetes, ESRD, GERD, hepatitis, hypertension, stroke Past Surgical History: Other (Dalysis access) Social history: , lives with family. denies: smoking, alcohol abuse, prescription drug abuse Family history: diabetes, hypertension Medications and Allergies Allergies Allergy/AdvReac Type Severity Reaction Status Date / Time peanut Allergy Hives Verified 07/15/17 22:29 prochlorperazine Allergy Swelling Verified 09/24/15 16:42 [From Compazine] prochlorperazine edisylate Allergy Swelling Verified 09/24/15 16:42 [From Compazine] prochlorperazine maleate Allergy Swelling Verified 09/24/15 16:42 [From Compazine] acetaminophen [From Percocet] AdvReac Vomiting Verified 09/24/15 16:42 oxycodone HCl [From Percocet] AdvReac Vomiting Verified 09/24/15 16:42 Home Medications Medication Instructions Recorded Confirmed Last Taken Type AtorvaSTATin [Lipitor] 40 mg PO QHS #30 tablet 12/03/15 07/16/17 01/27/16 Rx amLODIPine [Norvasc] 10 mg PO QDAY #30 tablet 12/03/15 07/16/17 01/28/16 Rx hydrALAZINE [Apresoline TAB] 25 mg PO Q8HR #90 tablet 12/03/15 07/16/17 01/28/16 Rx metOLazone [Zaroxolyn] 5 mg PO QDAY 01/28/16 07/16/17 01/28/16 History Aspirin 325 mg PO DAILY 07/18/17 07/18/17 Unknown History Clonidine 0.1 mg PO Q8HR PRN 07/18/17 07/18/17 Unknown History Colace CAP 100 mg PO BID PRN 07/18/17 07/18/17 Unknown History Detemir (Nf) [Levemir (Nf)] 12 units SC HS 07/18/17 07/18/17 Unknown History Fluoxetine HCl 40 mg PO DAILY 07/18/17 07/18/17 Unknown History Gabapentin 100 mg PO DAILY 07/18/17 07/18/17 Unknown History Humalog 2 units SC AC 07/18/17 07/18/17 Unknown History Lisinopril 20 mg PO DAILY 07/18/17 07/18/17 Unknown History Metoprolol 50 mg PO BID 07/18/17 07/18/17 Unknown History Ondansetron TAB 4 mg PO Q8H 07/18/17 07/18/17 Unknown History Protonix TAB 40 mg PO DAILY 07/18/17 07/18/17 Unknown History Sensipar 30 mg PO MOTUWETHFR 07/18/17 07/18/17 Unknown History Sevelamer Carbonate 1,600 tab PO AC 07/18/17 07/18/17 Unknown History traZODone [Desyrel] 50 mg PO HS 07/18/17 07/18/17 Unknown History Active Meds: Active Medications Acetaminophen (Tylenol) 650 mg PO Q4H PRN PRN Reason: Pain MILD(1-3)/Fever >100.5/KELLER Albuterol (Proventil) 2.5 mg IH Q4HRT PRN PRN Reason: Shortness Of Breath Amlodipine Besylate (Norvasc) 10 mg PO QDAY DANTE Atorvastatin Calcium (Lipitor) 40 mg PO QHS [facility] Dextrose (D50w (25gm) Syringe) 50 ml IV PRN PRN PRN Reason: Hypoglycemia Hydralazine HCl (Apresoline) 25 mg PO Q8HR [facility] Sodium Chloride (Nacl 0.9%) 100 mls @ 999 mls/hr IV SAMMI PRN PRN Reason: Hypotension Insulin Human Lispro (Humalog) 0 unit SUB-Q Q6HR DANTE; Protocol Methylprednisolone Sodium Succinate (Solu-Medrol) 20 mg IV Q24HR DANTE Metolazone (Zaroxolyn) 5 mg PO QDAY [facility] Miscellaneous Medication (Aspirin) 325 mg PO DAILY [facility] Miscellaneous Medication (Clonidine) 0.1 mg PO Q8HR PRN PRN Reason: B/P OVER 180/110 Miscellaneous Medication (Detemir (Nf)) 12 units SC HS DANTE Miscellaneous Medication (Fluoxetine Hcl) 40 mg PO DAILY [facility] Miscellaneous Medication (Gabapentin) 100 mg PO DAILY [facility] Miscellaneous Medication (Humalog) 2 units SC AC [facility] Miscellaneous Medication (Lisinopril) 20 mg PO DAILY DANTE Miscellaneous Medication (Metoprolol) 50 mg PO BID [facility] Miscellaneous Medication (Ondansetron Tab) 4 mg PO Q8H [facility] Miscellaneous Medication (Protonix Tab) 40 mg PO DAILY [facility] Miscellaneous Medication (Sensipar) 30 mg PO MOTUWETHFR [facility] Miscellaneous Medication (Sevelamer Carbonate) 1,600 tab PO AC [facility] Ondansetron HCl (Zofran) 4 mg IV Q8H PRN PRN Reason: Nausea And Vomiting Sodium Chloride (Sodium Chloride Flush Syringe 10 Ml) 10 ml IV BID DANTE Sodium Chloride (Sodium Chloride Flush Syringe 10 Ml) 10 ml IV PRN PRN PRN Reason: LINE FLUSH Trazodone HCl (Desyrel) 50 mg PO HS [facility] Review of Systems Constitutional: fatigue, weakness, malaise Eyes: right: blurred vision, left: loss of vision Ears, nose, mouth and throat: other Respiratory: shortness of breath, dyspnea on exertion Gastrointestinal: abdominal pain, nausea, vomiting Neurological: weakness Psychiatric: depression Endocrine: high blood sugars Exam - Vital Signs Vital signs: Vital Signs Temp Pulse Resp BP Pulse Ox 98 F 73 16 146/73 98 10/15/18 09:06 10/15/18 09:06 10/15/18 09:06 10/15/18 09:06 10/15/18 09:06 - General Appearance General appearance: other (awake) EENT: ATNC (left eye blindness, right eye chronically blurry) Neck: Present: neck supple Respiratory: Decreased Breath Sounds Heart: regular, S1S2, other (ACCESS: Left AVF in use) Gastrointestinal: Present: normoactive bowel sounds, tenderness Integumentary: warm and dry Neurologic: alert and oriented x3 Musculoskeletal: Present: other (no edema to BLE) Psychiatric: cooperative Results - Lab Results 10/15/18 08:22 10/15/18 08:22 Most recent lab results Calcium 9.2 mg/dL (8.4-10.2) 10/15/18 08:22 Assessment and Plan End Stage Renal Disease on HD: - HD today for UF and clearance - Assess need for HD on daily basis - Fluid restriction of 1 liter per day - Check phosphorus and magnesium level in am - Renally dose meds - This pt undergoes outpatient HD at [facility] every TTS - Renal plan d/w Dr Hensley Hyperglycemia: Diabetes Mellitus Type 2 on insulin, uncontrolled: - On insulin - As per primary team Essential Hypertension: - Resume home meds - Adjust meds as needed Colitis: - GI consulted, f/u recs
[2018-10-15 18:46] LABS: Hepatitis B Surface Antigen Reactive (Negative); Hepatitis C Virus Antibody Non-Reactive (NonReactive)
[2018-10-15] MEDS ORDERED: NACL 0.9 (PRIMING MACHINE ONLY DIALYSIS) MC ONE (19:49)
[2018-10-15] MEDS: APRESOLINE PO SCH (21:22)
[2018-10-15] MEDS: LOPRESSOR PO SCH (21:22)
[2018-10-15] MEDS: DESYREL PO SCH (21:23)
[2018-10-15] MEDS: SODIUM CHLORIDE FLUSH SYRINGE 10 ML IV SCH (21:23)
[2018-10-15] MEDS: TYLENOL PO PRN (21:24)
[2018-10-15] MEDS ORDERED: DETEMIR SC SCH (22:00)
[2018-10-15] MEDS ORDERED: NON-FORMULARY (Metoprolol 50 MG) PO SCH (22:00)
[2018-10-15] MEDS ORDERED: DESYREL PO SCH (22:00)
[2018-10-15] MEDS: LANTUS SUB-Q SCH (23:51)
[2018-10-16] MEDS: HumaLOG SUB-Q SCH ×7 (00:55→18:23)
[2018-10-16] MEDS: ZOFRAN ODT PO SCH ×3 (03:00→18:21)
[2018-10-16] MEDS: CATAPRES PO SCH ×3 (03:00→18:22)
[2018-10-16] MEDS: TYLENOL PO PRN (06:22)
[2018-10-16] MEDS: APRESOLINE PO SCH ×3 (06:36→22:34)
[2018-10-16 07:13] LABS: Hematocrit 36.7 % (35.5-45.6); Hemoglobin 12.1 gm/dl (11.8-15.2); Mean Corpuscular HGB Conc 33 % (32-34); Mean Corpuscular Volume 89 fl (84-94); Platelet Count 188 K/mm3 (140-440); Red Blood Count 4.14 M/mm3 (3.65-5.03); Red Cell Distribution Width 19.7 % (13.2-15.2)
[2018-10-16] MEDS ORDERED: INSULIN LISPRO SC SCH (07:30)
[2018-10-16] MEDS ORDERED: SEVELAMER CARBONATE PO SCH (07:30)
[2018-10-16 07:33] LABS: Calcium 9.1 mg/dL (8.4-10.2)
[2018-10-16] MEDS: RENVELA PO SCH ×3 (08:30→18:24)
--- NOTE | 2018-10-16 09:36 | Progress Note ---
Assessment and Plan / End stage renal disease on dialysis Nephrology consulted in ED, strict I/O, daily weight, avoid nephrotoxic agents. / Abdominal pain due to Colitis will stop sterois, cont IV abx therapy, GI consulted, follow stool studies, serial abdominal exam. noted CT Abdomen/Pelvis report / Diabetes on insulin cont ADA diet, insulin, accu check / HTN (hypertension) monitor bp q shift, continue medical management. / DVT prophylaxis SCD to BLE while in bed. Subjective Date of service: 10/16/18 Interval history: patient seen and examined c/o mild abdominal pain but no N/V and tolerating diet denies any chest pain or SOB Objective - Constitutional Vitals: Vital Signs - 12hr 10/15/18 10/15/18 10/15/18 20:40 20:42 20:50 Temperature Pulse Rate 89 86 Pulse Rate [ From Monitor] Respiratory 10 L 9 L Rate Blood Pressure 161/90 161/90 161/90 O2 Sat by Pulse 98 97 93 Oximetry 10/15/18 10/15/18 10/15/18 21:00 21:10 21:20 Temperature Pulse Rate 86 85 83 Pulse Rate [ From Monitor] Respiratory 8 L 10 L 9 L Rate Blood Pressure 165/91 161/90 161/90 O2 Sat by Pulse 97 98 97 Oximetry 10/15/18 10/15/18 10/15/18 21:22 21:30 21:40 Temperature Pulse Rate 85 84 86 Pulse Rate [ From Monitor] Respiratory 15 14 Rate Blood Pressure 165/91 161/90 161/90 O2 Sat by Pulse 99 99 Oximetry 10/15/18 10/15/18 10/15/18 21:50 22:00 22:10 Temperature Pulse Rate 84 87 85 Pulse Rate [ From Monitor] Respiratory 11 L 12 14 Rate Blood Pressure 161/90 144/76 144/76 O2 Sat by Pulse 99 99 100 Oximetry 10/15/18 10/15/18 10/15/18 22:20 22:30 22:40 Temperature Pulse Rate 83 84 82 Pulse Rate [ From Monitor] Respiratory 13 12 11 L Rate Blood Pressure 165/91 165/91 165/91 O2 Sat by Pulse 99 98 99 Oximetry 10/15/18 10/15/18 10/15/18 22:50 23:00 23:10 Temperature Pulse Rate 80 80 77 Pulse Rate [ From Monitor] Respiratory 11 L 10 L 9 L Rate Blood Pressure 144/76 144/76 O2 Sat by Pulse 100 98 98 Oximetry 10/15/18 10/15/18 10/15/18 23:20 23:30 23:40 Temperature Pulse Rate 75 77 77 Pulse Rate [ From Monitor] Respiratory 11 L 11 L 13 Rate Blood Pressure 155/88 155/88 155/88 O2 Sat by Pulse 95 96 98 Oximetry 10/15/18 10/16/18 10/16/18 23:50 00:00 00:01 Temperature 98.2 F Pulse Rate 76 77 85 Pulse Rate [ 81 From Monitor] Respiratory 11 L 15 Rate Blood Pressure 155/88 150/90 O2 Sat by Pulse 99 97 Oximetry 10/16/18 10/16/18 10/16/18 00:10 00:20 00:30 Temperature Pulse Rate 77 73 78 Pulse Rate [ From Monitor] Respiratory 12 9 L 10 L Rate Blood Pressure 150/90 150/90 150/90 O2 Sat by Pulse 98 99 97 Oximetry 10/16/18 10/16/18 10/16/18 00:40 00:50 01:00 Temperature Pulse Rate 71 70 Pulse Rate [ From Monitor] Respiratory 8 L 15 Rate Blood Pressure 150/90 150/90 145/89 O2 Sat by Pulse 97 100 92 Oximetry 10/16/18 10/16/18 10/16/18 01:10 01:20 01:30 Temperature Pulse Rate 76 76 78 Pulse Rate [ From Monitor] Respiratory 11 L 13 12 Rate Blood Pressure 145/89 145/89 145/89 O2 Sat by Pulse 97 100 99 Oximetry 10/16/18 10/16/18 10/16/18 01:40 01:50 03:00 Temperature Pulse Rate 80 76 72 Pulse Rate [ From Monitor] Respiratory 11 L 11 L 10 L Rate Blood Pressure 145/89 145/89 121/58 O2 Sat by Pulse 97 94 96 Oximetry 10/16/18 10/16/18 10/16/18 03:10 03:20 03:30 Temperature Pulse Rate 74 72 75 Pulse Rate [ From Monitor] Respiratory 10 L 11 L 12 Rate Blood Pressure 121/58 121/58 145/89 O2 Sat by Pulse 98 97 98 Oximetry 10/16/18 10/16/18 10/16/18 03:40 03:50 04:00 Temperature 98.6 F Pulse Rate 74 77 79 Pulse Rate [ 78 From Monitor] Respiratory 10 L 13 14 Rate Blood Pressure 145/89 145/89 156/96 O2 Sat by Pulse 99 98 98 Oximetry 10/16/18 10/16/18 10/16/18 04:10 04:20 04:30 Temperature Pulse Rate 78 76 77 Pulse Rate [ From Monitor] Respiratory 12 8 L 9 L Rate Blood Pressure 156/96 156/96 156/96 O2 Sat by Pulse 98 98 98 Oximetry 10/16/18 10/16/18 10/16/18 04:40 04:50 05:00 Temperature 98.6 F Pulse Rate 78 80 80 Pulse Rate [ From Monitor] Respiratory 9 L 9 L 10 L Rate Blood Pressure 156/96 156/96 158/95 O2 Sat by Pulse 95 97 97 Oximetry 10/16/18 10/16/18 10/16/18 05:10 05:20 05:30 Temperature Pulse Rate 80 76 76 Pulse Rate [ From Monitor] Respiratory 10 L 11 L 13 Rate Blood Pressure 158/95 158/95 158/95 O2 Sat by Pulse 97 98 98 Oximetry 10/16/18 10/16/18 10/16/18 05:40 05:50 06:00 Temperature Pulse Rate 72 74 73 Pulse Rate [ From Monitor] Respiratory 9 L 11 L 9 L Rate Blood Pressure 158/95 158/95 131/74 O2 Sat by Pulse 98 97 100 Oximetry 10/16/18 10/16/18 10/16/18 06:10 06:36 08:00 Temperature Pulse Rate 75 78 Pulse Rate [ 83 From Monitor] Respiratory 16 13 Rate Blood Pressure 131/74 131/74 O2 Sat by Pulse 99 100 Oximetry 10/16/18 09:00 Temperature Pulse Rate 82 Pulse Rate [ From Monitor] Respiratory Rate Blood Pressure O2 Sat by Pulse Oximetry General appearance: Present: no acute distress, well-nourished - EENT Eyes: PERRL, EOM intact ENT: hearing intact, clear oral mucosa Ears: bilateral: normal - Neck Neck: supple, normal ROM - Respiratory Respiratory effort: normal Respiratory: bilateral: CTA - Cardiovascular Rhythm: regular Heart Sounds: Present: S1 & S2. Absent: gallop, rub Extremities: pulses intact, No edema, normal color, Full ROM - Gastrointestinal General gastrointestinal: Present: soft, tender (mild), non-distended, normal bowel sounds - Integumentary Integumentary: clear, warm, dry - Musculoskeletal Musculoskeletal: 1, strength equal bilaterally - Neurologic Neurologic: moves all extremities - Psychiatric Psychiatric: memory intact, appropriate mood/affect, intact judgment & insight - Labs CBC & Chem 7: 10/17/18 05:47 10/17/18 05:47 Labs: Abnormal lab results 10/15/18 10/15/18 10/15/18 Range/Units 08:22 08:22 17:40 Hgb 11.7 L (11.8-15.2) gm/dl Hct 35.4 L (35.5-45.6) % RDW 18.9 H (13.2-15.2) % [place] % (Auto) 11.6 H (0.0-7.3) % Sodium 135 L (137-145) mmol/L Chloride 85.0 L (98-107) mmol/L Carbon Dioxide 35 H (22-30) mmol/L BUN 52 H (9-20) mg/dL Creatinine 9.4 H (0.8-1.5) mg/dL Glucose 374 H (75-100) mg/dL POC Glucose (70-105) Phosphorus (2.5-4.5) mg/dL Urine pH (5.0-7.0) Hep B Core IgM Ab Reactive A (NonReactive) 10/15/18 10/15/18 10/16/18 Range/Units 23:53 Unknown 05:15 Hgb (11.8-15.2) gm/dl Hct (35.5-45.6) % RDW (13.2-15.2) % [place] % (Auto) (0.0-7.3) % Sodium (137-145) mmol/L Chloride (98-107) mmol/L Carbon Dioxide (22-30) mmol/L BUN (9-20) mg/dL Creatinine (0.8-1.5) mg/dL Glucose (75-100) mg/dL POC Glucose 280 H 221 H (70-105) Phosphorus (2.5-4.5) mg/dL Urine pH 9.0 H (5.0-7.0) Hep B Core IgM Ab (NonReactive) 10/16/18 10/16/18 10/16/18 Range/Units 06:39 06:39 06:39 Hgb (11.8-15.2) gm/dl Hct (35.5-45.6) % RDW 19.7 H (13.2-15.2) % [place] % (Auto) (0.0-7.3) % Sodium 135 L (137-145) mmol/L Chloride 89.5 L (98-107) mmol/L Carbon Dioxide (22-30) mmol/L BUN 35 H (9-20) mg/dL Creatinine 7.1 H (0.8-1.5) mg/dL Glucose 231 H (75-100) mg/dL POC Glucose (70-105) Phosphorus 5.60 H (2.5-4.5) mg/dL Urine pH (5.0-7.0) Hep B Core IgM Ab (NonReactive) 10/16/18 Range/Units 08:19 Hgb (11.8-15.2) gm/dl Hct (35.5-45.6) % RDW (13.2-15.2) % [place] % (Auto) (0.0-7.3) % Sodium (137-145) mmol/L Chloride (98-107) mmol/L Carbon Dioxide (22-30) mmol/L BUN (9-20) mg/dL Creatinine (0.8-1.5) mg/dL Glucose (75-100) mg/dL POC Glucose 168 H (70-105) Phosphorus (2.5-4.5) mg/dL Urine pH (5.0-7.0) Hep B Core IgM Ab (NonReactive)
[2018-10-16] MEDS: PROzac PO SCH (09:51)
[2018-10-16] MEDS ORDERED: LEVAQUIN 750MG/150ML 750 MG/150 ML BAG IV SCH (10:00)
[2018-10-16] MEDS ORDERED: NON-FORMULARY (Aspirin 325 MG) PO SCH (10:00)
[2018-10-16] MEDS ORDERED: FLUOXETINE HCL 40 MG PO SCH (10:00)
[2018-10-16] MEDS ORDERED: NON-FORMULARY (Lisinopril 20 MG) PO SCH (10:00)
[2018-10-16] MEDS ORDERED: FLAGYL 500 MG/100 ML 500 MG/100 ML BAG IV SCH (10:00)
[2018-10-16] MEDS ORDERED: NON-FORMULARY (Protonix Tab 40 MG) PO SCH (10:00)
[2018-10-16] MEDS ORDERED: SOLU-Medrol IV SCH (10:00)
[2018-10-16] MEDS ORDERED: NON-FORMULARY (Gabapentin 100 MG) PO SCH (10:00)
[2018-10-16] MEDS: LOPRESSOR PO SCH ×2 (10:03→22:34)
[2018-10-16] MEDS: ASPIRIN PO SCH (10:03)
[2018-10-16] MEDS: PROTONIX PO SCH (10:05)
[2018-10-16] MEDS: NORVASC PO SCH (10:05)
[2018-10-16] MEDS: ZESTRIL PO SCH (10:06)
[2018-10-16] MEDS: SODIUM CHLORIDE FLUSH SYRINGE 10 ML IV SCH ×2 (10:06→22:38)
[2018-10-16] MEDS: ZAROXOLYN PO SCH (10:11)
[2018-10-16] MEDS: FLAGYL PO SCH ×2 (12:35→22:37)
--- NOTE | 2018-10-16 16:32 | Progress Note ---
Assessment and Plan End Stage Renal Disease on HD: Hx of Hepatitis B: - S/p HD yesterday for UF and clearance - No acute indication for HD today - Assess need for HD on daily basis - Continue renvela 1600 mg po TID with meals for hyperphosphatemia management - Fluid restriction of 1 liter per day - Renally dose meds - This pt undergoes outpatient HD at [facility] every TTS - Renal plan d/w Dr Hensley Hyperglycemia: Diabetes Mellitus Type 2 on insulin, uncontrolled: - On insulin - As per primary team Essential Hypertension: - Resume home meds - Adjust meds as needed Colitis: - GI consulted, f/u recs Subjective Date of service: 10/16/18 Interval history: Pt seen in bed, c/o feeling tired, states tolerated HD well yesterday. Pt states he had 2 liters removed during HD Objective - Vital Signs Vital signs: Vital Signs - 12hr 10/16/18 10/16/18 10/16/18 04:40 04:50 05:00 Temperature 98.6 F Pulse Rate 78 80 80 Pulse Rate [ From Monitor] Respiratory 9 L 9 L 10 L Rate Blood Pressure 156/96 156/96 158/95 O2 Sat by Pulse 95 97 97 Oximetry 10/16/18 10/16/18 10/16/18 05:10 05:20 05:30 Temperature Pulse Rate 80 76 76 Pulse Rate [ From Monitor] Respiratory 10 L 11 L 13 Rate Blood Pressure 158/95 158/95 158/95 O2 Sat by Pulse 97 98 98 Oximetry 10/16/18 10/16/18 10/16/18 05:40 05:50 06:00 Temperature Pulse Rate 72 74 73 Pulse Rate [ From Monitor] Respiratory 9 L 11 L 9 L Rate Blood Pressure 158/95 158/95 131/74 O2 Sat by Pulse 98 97 100 Oximetry 10/16/18 10/16/18 10/16/18 06:10 06:36 07:00 Temperature Pulse Rate 75 78 78 Pulse Rate [ From Monitor] Respiratory 16 9 L Rate Blood Pressure 131/74 131/74 154/92 O2 Sat by Pulse 99 99 Oximetry 10/16/18 10/16/18 10/16/18 08:00 09:00 10:00 Temperature 98.4 F Pulse Rate 73 79 76 Pulse Rate [ 83 From Monitor] Respiratory 7 L 12 12 Rate Blood Pressure 135/67 155/87 132/66 O2 Sat by Pulse 99 100 98 Oximetry 10/16/18 10/16/18 10/16/18 10:03 10:05 10:06 Temperature Pulse Rate 76 78 76 Pulse Rate [ From Monitor] Respiratory Rate Blood Pressure 132/66 132/66 132/66 O2 Sat by Pulse Oximetry 10/16/18 10/16/18 10/16/18 10:07 11:00 12:00 Temperature 98.3 F Pulse Rate 75 82 Pulse Rate [ 72 From Monitor] Respiratory 10 L 12 Rate Blood Pressure 132/66 169/91 137/87 O2 Sat by Pulse 99 96 Oximetry 10/16/18 10/16/18 10/16/18 13:00 14:00 15:31 Temperature 97.7 F Pulse Rate 74 70 78 Pulse Rate [ From Monitor] Respiratory 12 12 16 Rate Blood Pressure 147/80 133/67 132/79 O2 Sat by Pulse 97 99 98 Oximetry - General Appearance General appearance: other (awake) EENT: ATNC (left eye blindness, chronic right eye blurry vision) Neck: no JVD Respiratory: Present: Decreased Breath Sounds Cardiology: regular, S1S2, other (ACCESS: Left AVF + thrill and bruit noted) Gastrointestinal: normoactive bowel sounds, no tenderness Integumentary: warm and dry Neurologic: alert and oriented x3 Musculoskeletal: other (trace edema to BLE) Psychiatric: cooperative - Lab 10/16/18 06:39 10/16/18 06:39 Most recent lab results Calcium 9.1 mg/dL (8.4-10.2) 10/16/18 06:39 Phosphorus 5.60 mg/dL (2.5-4.5) H 10/16/18 06:39 Magnesium 2.10 mg/dL (1.7-2.3) 10/16/18 06:39 Medications & Allergies - Medications Allergies/Adverse Reactions: Allergies peanut Allergy (Verified 07/15/17 22:29) Hives prochlorperazine [From Compazine] Allergy (Verified 09/24/15 16:42) Swelling prochlorperazine edisylate [From Compazine] Allergy (Verified 09/24/15 16:42) Swelling prochlorperazine maleate [From Compazine] Allergy (Verified 09/24/15 16:42) Swelling acetaminophen [From Percocet] Adverse Reaction (Verified 09/24/15 16:42) Vomiting oxycodone HCl [From Percocet] Adverse Reaction (Verified 09/24/15 16:42) Vomiting Home Medications: Home Medications Medication Instructions Recorded Confirmed Last Taken Type AtorvaSTATin [Lipitor] 40 mg PO QHS #30 tablet 12/03/15 10/15/18 01/27/16 Rx amLODIPine [Norvasc] 10 mg PO QDAY #30 tablet 12/03/15 10/15/18 01/28/16 Rx hydrALAZINE [Apresoline TAB] 25 mg PO Q8HR #90 tablet 12/03/15 10/15/18 01/28/16 Rx metOLazone [Zaroxolyn] 5 mg PO QDAY 01/28/16 10/15/18 01/28/16 History Aspirin 325 mg PO DAILY 07/18/17 10/15/18 Unknown History Clonidine 0.1 mg PO Q8HR PRN 07/18/17 10/15/18 Unknown History Colace CAP 100 mg PO BID PRN 07/18/17 10/15/18 Unknown History Detemir (Nf) [Levemir (Nf)] 12 units SC HS 07/18/17 10/15/18 Unknown History Fluoxetine HCl 40 mg PO DAILY 07/18/17 10/15/18 Unknown History Gabapentin 100 mg PO DAILY 07/18/17 10/15/18 Unknown History Humalog 2 units SC AC 07/18/17 10/15/18 Unknown History Lisinopril 20 mg PO DAILY 07/18/17 10/15/18 Unknown History Metoprolol 50 mg PO BID 07/18/17 10/15/18 Unknown History Ondansetron TAB 4 mg PO Q8H 07/18/17 10/15/18 Unknown History Protonix TAB 40 mg PO DAILY 07/18/17 10/15/18 Unknown History Sensipar 30 mg PO MOTUWETHFR 07/18/17 10/15/18 Unknown History Sevelamer Carbonate 1,600 tab PO AC 07/18/17 10/15/18 Unknown History traZODone [Desyrel] 50 mg PO HS 07/18/17 10/15/18 Unknown History Active Medications: Generic Name Dose Route Start Last Admin Trade Name Freq PRN Reason Stop Dose Admin Acetaminophen 650 mg 10/15/18 13:07 10/16/18 06:22 Tylenol PO 650 mg Q4H PRN Administration Pain MILD(1-3)/Fever >100.5/KELLER Albuterol 2.5 mg 10/15/18 13:07 Proventil IH Q4HRT PRN Shortness Of Breath Amlodipine Besylate 10 mg 10/16/18 10:00 10/16/18 10:05 Norvasc PO 10 mg QDAY DANTE Administration Aspirin 325 mg 10/16/18 10:00 10/16/18 10:03 Aspirin PO 325 mg QDAY DANTE Administration Atorvastatin Calcium 40 mg 10/15/18 22:00 10/15/18 21:22 Lipitor PO 40 mg QHS DANTE Administration Cinacalcet 30 mg 10/17/18 17:39 Sensipar PO [id number] DANTE Clonidine HCl 0.1 mg 10/15/18 18:00 10/16/18 10:07 Catapres PO 0.1 mg Q8H DANTE Administration Dextrose 50 ml 10/15/18 13:12 D50w (25gm) Syringe IV PRN PRN Hypoglycemia Fluoxetine HCl 40 mg 10/16/18 10:00 10/16/18 09:51 Prozac PO Not Given QDAY [facility] Gabapentin 100 mg 10/16/18 10:00 Neurontin PO QDAY DANTE Hydralazine HCl 25 mg 10/15/18 22:00 10/16/18 06:36 Apresoline PO 25 mg Q8HR DANTE Administration Sodium Chloride 100 mls @ 999 mls/hr 10/15/18 15:47 Nacl 0.9% IV SAMMI PRN Hypotension Insulin Glargine 12 units 10/15/18 22:00 10/15/18 23:51 Lantus SUB-Q 12 units QHS DANTE Administration Insulin Human Lispro 0 unit 10/15/18 18:00 10/16/18 12:35 Humalog SUB-Q 3 unit Q6HR DANTE Administration Protocol Insulin Human Lispro 2 unit 10/16/18 07:30 10/16/18 12:35 Humalog SUB-Q 2 unit AC DANTE Administration Levofloxacin 250 mg 10/17/18 12:00 Levaquin PO Q48H DANTE Lisinopril 20 mg 10/16/18 10:00 10/16/18 10:06 Zestril PO 20 mg QDAY DANTE Administration Metolazone 5 mg 10/16/18 10:00 10/16/18 10:11 Zaroxolyn PO 5 mg QDAY DANTE Administration Metoprolol Tartrate 50 mg 10/15/18 22:00 10/16/18 10:03 Lopressor PO 50 mg BID DANTE Administration Metronidazole 500 mg 10/16/18 12:00 10/16/18 12:35 Flagyl PO 500 mg Q8H DANTE Administration Protocol Ondansetron HCl 4 mg 10/15/18 18:00 10/16/18 09:43 Zofran Odt PO Not Given Q8H DANTE Pantoprazole Sodium 40 mg 10/16/18 10:00 10/16/18 10:05 Protonix PO 40 mg DAILY DANTE Administration Sevelamer Carbonate 1,600 mg 10/16/18 07:30 10/16/18 12:35 Renvela PO 1,600 mg AC DANTE Administration Sodium Chloride 10 ml 10/15/18 22:00 10/16/18 10:06 Sodium Chloride Flush Syringe 10 Ml IV 10 ml BID DANTE Administration Sodium Chloride 10 ml 10/15/18 13:07 Sodium Chloride Flush Syringe 10 Ml IV PRN PRN LINE FLUSH Trazodone HCl 50 mg 10/15/18 22:00 10/15/18 21:23 Desyrel PO 50 mg QHS DANTE Administration
[2018-10-16] MEDS ORDERED: NACL 0.9% 100 ML IV PRN (16:44)
[2018-10-16] MEDS: NEURONTIN PO SCH (18:23)
[2018-10-16] MEDS: DESYREL PO SCH (22:35)
[2018-10-17] MEDS: LANTUS SUB-Q SCH (00:09)
[2018-10-17] MEDS: HumaLOG SUB-Q SCH ×7 (00:09→19:04)
--- NOTE | 2018-10-17 00:09 | Consultation ---
REFERRING PHYSICIAN: Mary Alice Mauro MD INDICATION: Abdominal pain. HISTORY OF PRESENT ILLNESS: The patient is a 57-year-old male with a history of end-stage renal disease, on dialysis, hypertension, diabetes, reflux, hepatitis B, status post TIA as well as high cholesterol. The patient reports he has not been feeling well for the last 3 days with multiple bouts of nausea, vomiting, polyuria, polydipsia and increased confusion. He also reports some lower abdominal pain, which was crampy. He denies any rectal bleeding or bloody bowel movements. It is unclear as to whether or not he has had a recent colonoscopy. The patient subsequently came to the Emergency Room where he was noted to be in DKA and admitted for that. The patient subsequently had a CT scan showing colitis and was admitted and GI consulted. Denies any rectal bleeding. Denies any other specific GI complaints. PAST MEDICAL HISTORY: 1. Diabetes. 2. End-stage renal disease. 3. Reflux. 4. Hypertension. 5. Status post CVA. MEDICATIONS: Reviewed and updated in the chart. ALLERGIES: COMPAZINE, ACETAMINOPHEN. SOCIAL HISTORY: Reports social alcohol, denies tobacco. FAMILY HISTORY: Negative for colon cancer, IBD, or liver disease. REVIEW OF SYSTEMS: GENERAL: Reports mild weakness. HEENT: No visual complaints or tinnitus. PULMONARY: No short of breath. No cough. No chest pain. GASTROINTESTINAL: Reports abdominal pain as well as nausea. All points of 13-point review of systems otherwise negative. PHYSICAL EXAMINATION: VITAL SIGNS: Temperature of 97.7, pulse 78, respiration 18, blood pressure 132/80. GENERAL: Fairly nourished male in no acute distress. HEENT: Pupils are equal, round, and reactive. PULMONARY: Clear to auscultation bilaterally. CARDIOVASCULAR: Regular rate and rhythm. Normal S1 and S2. ABDOMEN: Positive bowel sound, soft. SKIN: No obvious rashes. LABORATORY DATA: Pertinent for white count of 6.1, hemoglobin and hematocrit of 12.1 and 36.7, platelet count of 188. Chem-7 within normal limits except for BUN and creatinine of [address] scan showed signs of inflammation noted in the ascending colon to the rectum with some diverticula in the area, raising the possibility of colitis versus diverticulitis. ASSESSMENT: This 57-year-old male presents with newly diagnosed diabetes with diabetic ketoacidosis, now with abdominal pain with colitis versus diverticulitis on CT scan. The patient reports the pain seems to be improving. He reports no recent colonoscopy. PLAN: 1. Review CT scan. 2. Continue with Levaquin and Flagyl as ordered. 3. The patient on clear liquid diet and will advance based on progress. 4. PPI daily. 5. Diabetes and DKA management per primary team. 6. We will follow. JOB# [id number] CAB/NTS
[2018-10-17] MEDS: CATAPRES PO SCH ×4 (03:00→19:19)
[2018-10-17] MEDS: ZOFRAN ODT PO SCH ×4 (05:32→19:20)
[2018-10-17] MEDS: FLAGYL PO SCH ×2 (05:35→13:25)
[2018-10-17] MEDS: APRESOLINE PO SCH ×3 (05:38→22:26)
[2018-10-17 06:13] LABS: Hematocrit 35.1 % (35.5-45.6); Hemoglobin 11.6 gm/dl (11.8-15.2); Mean Corpuscular HGB Conc 33 % (32-34); Mean Corpuscular Volume 87 fl (84-94); Platelet Count 193 K/mm3 (140-440); Red Blood Count 4.02 M/mm3 (3.65-5.03); Red Cell Distribution Width 18.9 % (13.2-15.2)
[2018-10-17 07:06] LABS: Calcium 8.8 mg/dL (8.4-10.2)
[2018-10-17] MEDS: NORVASC PO SCH (09:36)
[2018-10-17] MEDS: PROzac PO SCH (09:36)
[2018-10-17] MEDS: RENVELA PO SCH ×3 (09:36→19:03)
[2018-10-17] MEDS: ASPIRIN PO SCH (09:36)
[2018-10-17] MEDS: PROTONIX PO SCH (09:37)
[2018-10-17] MEDS: LOPRESSOR PO SCH ×2 (09:37→22:26)
[2018-10-17] MEDS: ZESTRIL PO SCH (09:38)
[2018-10-17] MEDS: NEURONTIN PO SCH (09:38)
[2018-10-17] MEDS: SODIUM CHLORIDE FLUSH SYRINGE 10 ML IV SCH ×2 (09:38→22:27)
--- NOTE | 2018-10-17 10:52 | Progress Note ---
Assessment and Plan End Stage Renal Disease on HD: Hx of Hepatitis B: - No acute indication for HD today, can be discharged from renal standpoint, next HD is tomorrow as an outpatient in [facility] - Assess need for HD on daily basis - Continue renvela 1600 mg po TID with meals for hyperphosphatemia management - Fluid restriction of 1 liter per day - Renally dose meds Hyperglycemia: Diabetes Mellitus Type 2 on insulin, uncontrolled: - On insulin - As per primary team Essential Hypertension: - Resume home meds - Adjust meds as needed Colitis: - GI consulted, f/u recs Subjective Date of service: 10/17/18 Principal diagnosis: ESRD Interval history: feels better Objective - Vital Signs Vital signs: Vital Signs - 12hr 10/16/18 10/17/18 10/17/18 23:07 04:00 05:07 Temperature 98.0 F 98.2 F Pulse Rate 73 74 Respiratory 20 20 Rate Respiratory 17 Rate [no pain] Blood Pressure 148/76 152/86 O2 Sat by Pulse 97 96 Oximetry 10/17/18 10/17/18 10/17/18 05:38 09:36 09:37 Temperature Pulse Rate 76 76 76 Respiratory Rate Respiratory Rate [no pain] Blood Pressure 152/86 152/86 152/86 O2 Sat by Pulse Oximetry 10/17/18 09:38 Temperature Pulse Rate 76 Respiratory Rate Respiratory Rate [no pain] Blood Pressure 152/86 O2 Sat by Pulse Oximetry - General Appearance General appearance: well-developed, well-nourished, appears stated age EENT: ATNC, PERRL, mucous membranes moist Neck: no JVD, no carotid bruit Respiratory: Present: Clear to Ascultation. Absent: Rales, Ronchi Cardiology: regular, S1S2 Gastrointestinal: normoactive bowel sounds, no tenderness, no distended Integumentary: no rash, warm and dry Neurologic: no focal deficit, no asterixis, alert and oriented x3 Musculoskeletal: other (no edema in BLE) Psychiatric: mood/affect appropriate, cooperative - Lab 10/17/18 05:47 10/17/18 05:47 Most recent lab results Calcium 8.8 mg/dL (8.4-10.2) 10/17/18 05:47 Phosphorus 5.60 mg/dL (2.5-4.5) H 10/16/18 06:39 Magnesium 2.10 mg/dL (1.7-2.3) 10/16/18 06:39 Medications & Allergies - Medications Allergies/Adverse Reactions: Allergies peanut Allergy (Verified 07/15/17 22:29) Hives prochlorperazine [From Compazine] Allergy (Verified 09/24/15 16:42) Swelling prochlorperazine edisylate [From Compazine] Allergy (Verified 09/24/15 16:42) Swelling prochlorperazine maleate [From Compazine] Allergy (Verified 09/24/15 16:42) Swelling acetaminophen [From Percocet] Adverse Reaction (Verified 09/24/15 16:42) Vomiting oxycodone HCl [From Percocet] Adverse Reaction (Verified 09/24/15 16:42) Vomiting Home Medications: Home Medications Medication Instructions Recorded Confirmed Last Taken Type AtorvaSTATin [Lipitor] 40 mg PO QHS #30 tablet 12/03/15 10/15/18 01/27/16 Rx amLODIPine [Norvasc] 10 mg PO QDAY #30 tablet 12/03/15 10/15/18 01/28/16 Rx hydrALAZINE [Apresoline TAB] 25 mg PO Q8HR #90 tablet 12/03/15 10/15/18 01/28/16 Rx metOLazone [Zaroxolyn] 5 mg PO QDAY 01/28/16 10/15/18 01/28/16 History Aspirin 325 mg PO DAILY 07/18/17 10/15/18 Unknown History Clonidine 0.1 mg PO Q8HR PRN 07/18/17 10/15/18 Unknown History Colace CAP 100 mg PO BID PRN 07/18/17 10/15/18 Unknown History Detemir (Nf) [Levemir (Nf)] 12 units SC HS 07/18/17 10/15/18 Unknown History Fluoxetine HCl 40 mg PO DAILY 07/18/17 10/15/18 Unknown History Gabapentin 100 mg PO DAILY 07/18/17 10/15/18 Unknown History Humalog 2 units SC AC 07/18/17 10/15/18 Unknown History Lisinopril 20 mg PO DAILY 07/18/17 10/15/18 Unknown History Metoprolol 50 mg PO BID 07/18/17 10/15/18 Unknown History Ondansetron TAB 4 mg PO Q8H 07/18/17 10/15/18 Unknown History Protonix TAB 40 mg PO DAILY 07/18/17 10/15/18 Unknown History Sensipar 30 mg PO MOTUWETHFR 07/18/17 10/15/18 Unknown History Sevelamer Carbonate 1,600 tab PO AC 07/18/17 10/15/18 Unknown History traZODone [Desyrel] 50 mg PO HS 07/18/17 10/15/18 Unknown History Active Medications: Generic Name Dose Route Start Last Admin Trade Name Freq PRN Reason Stop Dose Admin Acetaminophen 650 mg 10/15/18 13:07 10/16/18 06:22 Tylenol PO 650 mg Q4H PRN Administration Pain MILD(1-3)/Fever >100.5/KELLER Albuterol 2.5 mg 10/15/18 13:07 Proventil IH Q4HRT PRN Shortness Of Breath Amlodipine Besylate 10 mg 10/16/18 10:00 10/17/18 09:36 Norvasc PO 10 mg QDAY DANTE Administration Aspirin 325 mg 10/16/18 10:00 10/17/18 09:36 Aspirin PO 325 mg QDAY DANTE Administration Atorvastatin Calcium 40 mg 10/15/18 22:00 10/16/18 22:34 Lipitor PO 40 mg QHS DANTE Administration Cinacalcet 30 mg 10/17/18 17:39 Sensipar PO MoTuWeThFr DANTE Clonidine HCl 0.1 mg 10/15/18 18:00 10/17/18 03:00 Catapres PO Not Given Q8H DANTE Dextrose 50 ml 10/15/18 13:12 D50w (25gm) Syringe IV PRN PRN Hypoglycemia Fluoxetine HCl 40 mg 10/16/18 10:00 10/17/18 09:36 Prozac PO 40 mg QDAY DANTE Administration Gabapentin 100 mg 10/16/18 10:00 10/17/18 09:38 Neurontin PO 100 mg QDAY DANTE Administration Hydralazine HCl 25 mg 10/15/18 22:00 10/17/18 05:38 Apresoline PO 25 mg Q8HR DANTE Administration Sodium Chloride 100 mls @ 999 mls/hr 10/15/18 15:47 Nacl 0.9% IV SAMMI PRN Hypotension Sodium Chloride 100 mls @ 999 mls/hr 10/16/18 16:44 Nacl 0.9% IV SAMMI PRN Hypotension Insulin Glargine 12 units 10/15/18 22:00 10/17/18 00:09 Lantus SUB-Q Not Given QHS DANTE Insulin Human Lispro 0 unit 10/15/18 18:00 10/17/18 06:33 Humalog SUB-Q 8 unit Q6HR DANTE Administration Protocol Insulin Human Lispro 2 unit 10/16/18 07:30 10/17/18 09:40 Humalog SUB-Q 2 unit AC DANTE Administration Levofloxacin 250 mg 10/17/18 12:00 Levaquin PO Q48H DANTE Lisinopril 20 mg 10/16/18 10:00 10/17/18 09:38 Zestril PO 20 mg QDAY DANTE Administration Metolazone 5 mg 10/16/18 10:00 10/16/18 10:11 Zaroxolyn PO 5 mg QDAY DANTE Administration Metoprolol Tartrate 50 mg 10/15/18 22:00 10/17/18 09:37 Lopressor PO 50 mg BID DANTE Administration Metronidazole 500 mg 10/16/18 12:00 10/17/18 05:35 Flagyl PO 500 mg Q8H DANTE Administration Protocol Ondansetron HCl 4 mg 10/15/18 18:00 10/17/18 05:32 Zofran Odt PO Not Given Q8H DANTE Pantoprazole Sodium 40 mg 10/16/18 10:00 10/17/18 09:37 Protonix PO 40 mg DAILY DANTE Administration Sevelamer Carbonate 1,600 mg 10/16/18 07:30 10/17/18 09:36 Renvela PO 1,600 mg AC DANTE Administration Sodium Chloride 10 ml 10/15/18 22:00 10/17/18 09:38 Sodium Chloride Flush Syringe 10 Ml IV 10 ml BID DANTE Administration Sodium Chloride 10 ml 10/15/18 13:07 Sodium Chloride Flush Syringe 10 Ml IV PRN PRN LINE FLUSH Trazodone HCl 50 mg 10/15/18 22:00 10/16/18 22:35 Desyrel PO 50 mg QHS DANTE Administration
--- NOTE | 2018-10-17 10:54 | Gastroenterology Progress Note ---
Assessment and Plan 1.colitis -afebrile -WBC WNL -abd CT showed colitis vs diverticulitis -clinically, patient reports increase in generalized abd discomfort and distention this am. No vomiting or signs of bleeding. -will order KUB for further evaluation -continue empiric antibiotics -stool studies if diarrhea develops -advance diet as tolerated -continue supportive care -will follow 2.ESRD on HD 3.H/o hepatitis B 4.DM 5.HTN Subjective Date of service: 10/17/18 Principal diagnosis: colitis Interval history: Patient w/o acute distress. C/o increased abdominal distention/discomfort this am. No vomiting or signs of bleeding. Objective - Constitutional Vitals: Temp Pulse Resp BP Pulse Ox 98.2 F 76 20 152/86 96 10/17/18 05:07 10/17/18 09:38 10/17/18 05:07 10/17/18 09:38 10/17/18 05:07 General appearance: no acute distress - Respiratory Respiratory: bilateral: CTA (anterior) - Cardiovascular Rhythm: regular Heart Sounds: Present: S1 & S2 - Gastrointestinal General gastrointestinal: Present: soft, tender (mild generalized TTP), distended (slightly), normal bowel sounds - Labs CBC & Chem 7: 10/17/18 05:47 10/17/18 05:47 Labs: Laboratory Results - last 24 hr 10/16/18 10/16/18 10/17/18 17:00 23:55 05:47 WBC 5.9 RBC 4.02 Hgb 11.6 L Hct 35.1 L MCV 87 MCH 29 MCHC 33 RDW 18.9 H Plt Count 193 Sodium Potassium Chloride Carbon Dioxide Anion Gap BUN Creatinine Estimated GFR BUN/Creatinine Ratio Glucose POC Glucose 75 145 H Calcium 10/17/18 05:47 WBC RBC Hgb Hct MCV MCH MCHC RDW Plt Count Sodium 132 L Potassium 5.2 H Chloride 86.2 L Carbon Dioxide 28 Anion Gap 23 BUN 50 H Creatinine 8.6 H Estimated GFR 8 BUN/Creatinine Ratio 6 Glucose 305 H POC Glucose Calcium 8.8
[2018-10-17] MEDS ORDERED: CALCIUM GLUCONATE 1,000 MG in NACL 0.9% 100 ML IV ONE (11:06)
--- NOTE | 2018-10-17 11:36 | Discharge Summary ---
Providers - Providers Date of Admission: 10/15/18 13:07 Date of discharge: 10/17/18 Attending physician: ACE RIVAS 10/15/18 14:25 Consult to Physician [CONS] Routine Comment: Consulting Provider: OLGA ARELLANO Physician Instructions: Reason For Exam: esrd 10/15/18 16:30 Consult to Physician [CONS] Routine Comment: Consulting Provider: SHAWANDA KAY Physician Instructions: Reason For Exam: colitis Hospitalization Condition: Stable Pertinent studies: Head CT Abdomen/pelvis CT CXR Abdomen xry Hospital course: / End stage renal disease on dialysis Nephrology consulted in ED, strict I/O, daily weight, avoid nephrotoxic agents. / Abdominal pain due to Colitis tretaed with IV abx therapy, GI consulted, follow stool studies, serial abdominal exam. noted CT Abdomen/Pelvis report / Diabetes on insulin cont ADA diet, insulin, accu check / HTN (hypertension) monitor bp q shift, continue medical management. /hepatitis B, outpt follow up /hyperkalemia, due to ESRD s/p calcium gluconate / DVT prophylaxis SCD to BLE while in bed. Disposition: DC-01 TO HOME OR SELFCARE Time spent for discharge: 34 minutes Core Measure Documentation - Palliative Care Palliative Care/ Comfort Measures: Not Applicable - Core Measures Any of the following diagnoses?: none Exam - Physical Exam Narrative exam: General appearance: Present: no acute distress, well-nourished - EENT Eyes: PERRL, EOM intact ENT: hearing intact, clear oral mucosa Ears: bilateral: normal - Neck Neck: supple, normal ROM - Respiratory Respiratory effort: normal Respiratory: bilateral: CTA - Cardiovascular Rhythm: regular Heart Sounds: Present: S1 & S2. Absent: gallop, rub Extremities: pulses intact, No edema, normal color, Full ROM - Gastrointestinal General gastrointestinal: Present: soft, tender (mild), non-distended, normal bowel sounds - Integumentary Integumentary: clear, warm, dry - Musculoskeletal Musculoskeletal: 1, strength equal bilaterally - Neurologic Neurologic: moves all extremities - Psychiatric Psychiatric: memory intact, appropriate mood/affect, intact judgment & insight - Constitutional Vitals: Temp Pulse Resp BP Pulse Ox 98.2 F 76 20 152/86 96 10/17/18 05:07 10/17/18 09:38 10/17/18 05:07 10/17/18 09:38 10/17/18 05:07 Plan Activity: advance as tolerated Weight Bearing Status: Weight Bear as Tolerated Diet: renal Follow up with: DANDRE GLASER [Other] - 3-5 Days Prescriptions: Ciprofloxacin HCl [Ciprofloxacin TAB] 500 mg PO Q12H #10 tab metroNIDAZOLE [Flagyl] 500 mg PO Q8HR #15 tablet
--- NOTE | 2018-10-17 11:53 | XRay Report ---
AP ABDOMEN: HISTORY: Abdominal pain, distention. There is moderate stool throughout the colon and rectum. The abdominal gas pattern is unremarkable. No masses or organomegaly is identified and there is no gross evidence of free air or fluid. No significant soft tissue calcifications are noted. IMPRESSION: Fecal retention.
[2018-10-17] MEDS ORDERED: LEVAQUIN PO SCH (12:00)
[2018-10-17] MEDS ORDERED: LEVAQUIN 500MG/100ML 500 MG/100 ML BAG IV SCH (13:00)
[2018-10-17] MEDS: ZAROXOLYN PO SCH (13:30)
--- NOTE | 2018-10-17 14:00 | Progress Note ---
Assessment and Plan / Abdominal pain due to Colitis cont with IV abx therapy, GI consulted, serial abdominal exam. noted CT Abdomen/Pelvis report /Nausea vomiting, due to colitis, resolved / End stage renal disease on dialysis Nephrology consulted in ED, strict I/O, daily weight, avoid nephrotoxic agents. On TTS schedule, planned for HD tomorrow /stool impaction - seen on abdominal xry today added miralax, cont to monitor / Diabetes with hyperglycemia on insulin BG was >500 on admission cont ADA diet, insulin, accu check adjust insulin dose as needed / HTN (hypertension) monitor bp q shift, continue medical management. /hepatitis B, outpt follow up /hyperkalemia, due to ESRD s/p calcium gluconate, monitor BMP / DVT prophylaxis SCD to BLE while in bed. Brief history; This is a 57 y/o male with PMH of ESRD on HD, HTN, DM Type 2 on insulin, left eye blindness, right eye blurry vision (chronic), hepatitis B per pt, GERD, TIA and hyperlipidemia who presented to [facility] with c/o nausea, vomiting, abdominal pain, chills. Pt went to HD and was found to have elevated blood glucose level >500, EMS was called. Pt was transported via EMS to [facility] for further evaluation. Pt found to have colitis and hyperglycemia. GI consulted. abdominal xry today showed stool impaction, held discharge, placed on stool softner. d/c when clears by GI. Physical exam: General appearance: Present: no acute distress, well-nourished - EENT Eyes: PERRL, EOM intact ENT: hearing intact, clear oral mucosa Ears: bilateral: normal - Neck Neck: supple, normal ROM - Respiratory Respiratory effort: normal Respiratory: bilateral: CTA - Cardiovascular Rhythm: regular Heart Sounds: Present: S1 & S2. Absent: gallop, rub Extremities: pulses intact, No edema, normal color, Full ROM - Gastrointestinal General gastrointestinal: Present: soft, tender (mild), non-distended, normal bowel sounds - Integumentary Integumentary: clear, warm, dry - Musculoskeletal Musculoskeletal: 1, strength equal bilaterally - Neurologic Neurologic: moves all extremities - Psychiatric Psychiatric: memory intact, appropriate mood/affect, intact judgment & insight Subjective Date of service: 10/17/18 Principal diagnosis: ESRD Interval history: patient seen and examined c/o abdominal pain but no N/V and tolerating diet denies any chest pain or SOB abdominal xry showed stool retention Objective - Constitutional Vitals: Vital Signs - 12hr 10/17/18 10/17/18 10/17/18 04:00 05:07 05:38 Temperature 98.2 F Pulse Rate 74 76 Respiratory 20 Rate Respiratory 17 Rate [no pain] Blood Pressure 152/86 152/86 O2 Sat by Pulse 96 Oximetry 10/17/18 10/17/18 10/17/18 09:36 09:37 09:38 Temperature Pulse Rate 76 76 76 Respiratory Rate Respiratory Rate [no pain] Blood Pressure 152/86 152/86 152/86 O2 Sat by Pulse Oximetry - Labs CBC & Chem 7: 10/17/18 05:47 10/17/18 05:47 Labs: Abnormal lab results 10/16/18 10/17/18 10/17/18 Range/Units 23:55 05:47 05:47 Hgb 11.6 L (11.8-15.2) gm/dl Hct 35.1 L (35.5-45.6) % RDW 18.9 H (13.2-15.2) % Sodium 132 L (137-145) mmol/L Potassium 5.2 H (3.6-5.0) mmol/L Chloride 86.2 L (98-107) mmol/L BUN 50 H (9-20) mg/dL Creatinine 8.6 H (0.8-1.5) mg/dL Glucose 305 H (75-100) mg/dL POC Glucose 145 H (70-105)
--- NOTE | 2018-10-17 14:32 | Event Note ---
Date: 10/17/18 KUB results show fecal retention. Will order mag citrate now.
[2018-10-17] MEDS ORDERED: SENSIPAR 30 MG PO SCH (16:32)
[2018-10-17] MEDS: MIRALAX 3350 PO SCH (19:04)
[2018-10-17] MEDS: SENSIPAR PO SCH (19:04)
[2018-10-17] MEDS: DESYREL PO SCH (22:27)
[2018-10-18] MEDS: LANTUS SUB-Q SCH ×2 (00:21→21:54)
[2018-10-18] MEDS: FLAGYL PO SCH ×4 (00:23→21:02)
[2018-10-18] MEDS: HumaLOG SUB-Q SCH ×8 (00:23→17:57)
[2018-10-18] MEDS: MIRALAX 3350 PO SCH ×2 (01:23→16:43)
[2018-10-18] MEDS: CATAPRES PO SCH ×3 (02:39→17:16)
[2018-10-18] MEDS: ZOFRAN ODT PO SCH ×3 (02:42→18:51)
[2018-10-18] MEDS: APRESOLINE PO SCH ×3 (06:26→21:03)
[2018-10-18 06:28] LABS: Hematocrit 32.9 % (35.5-45.6); Hemoglobin 10.7 gm/dl (11.8-15.2); Mean Corpuscular HGB Conc 33 % (32-34); Mean Corpuscular Volume 87 fl (84-94); Platelet Count 188 K/mm3 (140-440); Red Cell Distribution Width 19.7 % (13.2-15.2)
[2018-10-18 06:54] LABS: Calcium 8.5 mg/dL (8.4-10.2)
[2018-10-18] MEDS: RENVELA PO SCH ×3 (08:56→16:29)
--- NOTE | 2018-10-18 10:47 | Progress Note ---
Assessment and Plan End Stage Renal Disease on HD: Hx of Hepatitis B: - HD today for clearance and volume removal - Assess need for HD on daily basis - Continue renvela 1600 mg po TID with meals for hyperphosphatemia management - Fluid restriction of 1 liter per day - Renally dose meds Hyperglycemia: Diabetes Mellitus Type 2 on insulin, uncontrolled: - On insulin - As per primary team Essential Hypertension: - Resume home meds - Adjust meds as needed Colitis: - GI consulted, f/u recs Subjective Date of service: 10/18/18 Principal diagnosis: ESRD Interval history: was about to start HD, denies acute issues Objective - Vital Signs Vital signs: Vital Signs - 12hr 10/17/18 10/18/18 10/18/18 23:11 00:00 02:39 Temperature 97.8 F Pulse Rate 69 66 Respiratory 16 Rate Respiratory 17 Rate [no pain] Blood Pressure 138/83 136/83 O2 Sat by Pulse 97 Oximetry 10/18/18 10/18/18 10/18/18 03:39 05:18 06:26 Temperature 98.7 F Pulse Rate 65 65 Respiratory 16 Rate Respiratory 17 Rate [no pain] Blood Pressure 117/73 120/73 O2 Sat by Pulse 96 Oximetry - General Appearance General appearance: well-developed, well-nourished EENT: ATNC, PERRL, mucous membranes moist Neck: no JVD, no carotid bruit Respiratory: Present: Clear to Ascultation. Absent: Rales, Ronchi Cardiology: regular, S1S2 Gastrointestinal: normoactive bowel sounds Integumentary: no rash, warm and dry Neurologic: no focal deficit, no asterixis Musculoskeletal: other (no edema in BLE) Psychiatric: mood/affect appropriate, cooperative - Lab 10/18/18 05:11 10/18/18 05:11 Most recent lab results Calcium 8.5 mg/dL (8.4-10.2) 10/18/18 05:11 Phosphorus 5.60 mg/dL (2.5-4.5) H 10/16/18 06:39 Magnesium 2.10 mg/dL (1.7-2.3) 10/16/18 06:39 Medications & Allergies - Medications Allergies/Adverse Reactions: Allergies peanut Allergy (Verified 07/15/17 22:29) Hives prochlorperazine [From Compazine] Allergy (Verified 09/24/15 16:42) Swelling prochlorperazine edisylate [From Compazine] Allergy (Verified 09/24/15 16:42) Swelling prochlorperazine maleate [From Compazine] Allergy (Verified 09/24/15 16:42) Swelling acetaminophen [From Percocet] Adverse Reaction (Verified 09/24/15 16:42) Vomiting oxycodone HCl [From Percocet] Adverse Reaction (Verified 09/24/15 16:42) Vomiting Home Medications: Home Medications Medication Instructions Recorded Confirmed Last Taken Type AtorvaSTATin [Lipitor] 40 mg PO QHS #30 tablet 12/03/15 10/15/18 01/27/16 Rx amLODIPine [Norvasc] 10 mg PO QDAY #30 tablet 12/03/15 10/15/18 01/28/16 Rx hydrALAZINE [Apresoline TAB] 25 mg PO Q8HR #90 tablet 12/03/15 10/15/18 01/28/16 Rx metOLazone [Zaroxolyn] 5 mg PO QDAY 01/28/16 10/15/18 01/28/16 History Aspirin 325 mg PO DAILY 07/18/17 10/15/18 Unknown History Clonidine 0.1 mg PO Q8HR PRN 07/18/17 10/15/18 Unknown History Colace CAP 100 mg PO BID PRN 07/18/17 10/15/18 Unknown History Detemir (Nf) [Levemir (Nf)] 12 units SC HS 07/18/17 10/15/18 Unknown History Fluoxetine HCl 40 mg PO DAILY 07/18/17 10/15/18 Unknown History Gabapentin 100 mg PO DAILY 07/18/17 10/15/18 Unknown History Humalog 2 units SC AC 07/18/17 10/15/18 Unknown History Metoprolol 50 mg PO BID 07/18/17 10/15/18 Unknown History Ondansetron TAB 4 mg PO Q8H 07/18/17 10/15/18 Unknown History Protonix TAB 40 mg PO DAILY 07/18/17 10/15/18 Unknown History Sensipar 30 mg PO MOTUWETHFR 07/18/17 10/15/18 Unknown History Sevelamer Carbonate 1,600 tab PO AC 07/18/17 10/15/18 Unknown History traZODone [Desyrel] 50 mg PO HS 07/18/17 10/15/18 Unknown History Ciprofloxacin HCl [Ciprofloxacin 500 mg PO Q12H #10 tab 10/17/18 Unknown Rx TAB] metroNIDAZOLE [Flagyl] 500 mg PO Q8HR #15 tablet 10/17/18 Unknown Rx Active Medications: Generic Name Dose Route Start Last Admin Trade Name Freq PRN Reason Stop Dose Admin Acetaminophen 650 mg 10/15/18 13:07 10/16/18 06:22 Tylenol PO 650 mg Q4H PRN Administration Pain MILD(1-3)/Fever >100.5/KELLER Albuterol 2.5 mg 10/15/18 13:07 Proventil IH Q4HRT PRN Shortness Of Breath Amlodipine Besylate 10 mg 10/16/18 10:00 10/17/18 09:36 Norvasc PO 10 mg QDAY DANTE Administration Aspirin 325 mg 10/16/18 10:00 10/17/18 09:36 Aspirin PO 325 mg QDAY DANTE Administration Atorvastatin Calcium 40 mg 10/15/18 22:00 10/17/18 22:26 Lipitor PO 40 mg QHS DANTE Administration Cinacalcet 30 mg 10/17/18 17:39 10/17/18 19:04 Sensipar PO 30 mg MoTuWeThFr DANTE Administration Clonidine HCl 0.1 mg 10/15/18 18:00 10/18/18 02:39 Catapres PO 0.1 mg Q8H DANTE Administration Dextrose 50 ml 10/15/18 13:12 D50w (25gm) Syringe IV PRN PRN Hypoglycemia Fluoxetine HCl 40 mg 10/16/18 10:00 10/17/18 09:36 Prozac PO 40 mg QDAY DANTE Administration Gabapentin 100 mg 10/16/18 10:00 10/17/18 09:38 Neurontin PO 100 mg QDAY DANTE Administration Hydralazine HCl 25 mg 10/15/18 22:00 10/18/18 06:26 Apresoline PO 25 mg Q8HR DANTE Administration Sodium Chloride 100 mls @ 999 mls/hr 10/16/18 16:44 Nacl 0.9% IV SAMMI PRN Hypotension Insulin Glargine 15 units 10/17/18 11:02 10/18/18 00:21 Lantus SUB-Q 15 units QHS DANTE Administration Insulin Human Lispro 0 unit 10/15/18 18:00 10/18/18 09:01 Humalog SUB-Q Not Given Q6HR DANTE Protocol Insulin Human Lispro 8 unit 10/17/18 11:02 10/18/18 08:58 Humalog SUB-Q 8 unit AC DANTE Administration Levofloxacin 250 mg 10/17/18 12:00 10/17/18 13:25 Levaquin PO 250 mg Q48H DANTE Administration Lisinopril 20 mg 10/16/18 10:00 10/17/18 09:38 Zestril PO 20 mg QDAY DANTE Administration Metolazone 5 mg 10/16/18 10:00 10/17/18 13:30 Zaroxolyn PO 5 mg QDAY DANTE Administration Metoprolol Tartrate 50 mg 10/15/18 22:00 10/17/18 22:26 Lopressor PO 50 mg BID DANTE Administration Metronidazole 500 mg 10/16/18 12:00 10/18/18 06:26 Flagyl PO 500 mg Q8H DANTE Administration Protocol Ondansetron HCl 4 mg 10/15/18 18:00 10/18/18 02:42 Zofran Odt PO 4 mg Q8H DANTE Administration Pantoprazole Sodium 40 mg 10/16/18 10:00 10/17/18 09:37 Protonix PO 40 mg DAILY DANTE Administration Polyethylene Glycol 17 gm 10/17/18 14:00 10/18/18 01:23 Miralax 3350 PO Not Given BID DANTE Sevelamer Carbonate 1,600 mg 10/16/18 07:30 10/18/18 08:56 Renvela PO 1,600 mg AC DANTE Administration Sodium Chloride 10 ml 10/15/18 22:00 10/17/18 22:27 Sodium Chloride Flush Syringe 10 Ml IV 10 ml BID DANTE Administration Sodium Chloride 10 ml 10/15/18 13:07 Sodium Chloride Flush Syringe 10 Ml IV PRN PRN LINE FLUSH Trazodone HCl 50 mg 10/15/18 22:00 10/17/18 22:27 Desyrel PO 50 mg QHS DANTE Administration
[2018-10-18] MEDS: LOPRESSOR PO SCH ×2 (11:21→21:03)
--- NOTE | 2018-10-18 11:42 | Gastroenterology Progress Note ---
Assessment and Plan 1.colitis -afebrile -WBC WNL -abd CT showed colitis vs diverticulitis -KUB yesterday showed fecal retention -clinically, patient is stable with abd discomfort/distension now improved after multiple BMs overnight and this am. No vomiting or signs of bleeding. Tolerating diet. -continue empiric antibiotics x total of 10 days -continue daily bowel regimen of Miralax -recommend an outpatient colonoscopy in 4-6 weeks once acute inflammation has resolved -continue supportive care -patient is okay to be d/c per GI standpoint on antibiotics with f/u in clinic in 2-3 weeks to schedule outpt colonoscopy -will sign off, please call if needed 2.ESRD on HD 3.H/o hepatitis B 4.DM 5.HTN Subjective Date of service: 10/18/18 Principal diagnosis: colitis Interval history: Patient w/o acute distress. Reports multiple BMs overnight and 1 this am with abdominal distension now improved. No N/V or signs of bleeding. Tolerating diet. Objective - Constitutional Vitals: Temp Pulse Resp BP Pulse Ox 98.7 F 65 16 120/73 96 10/18/18 05:18 10/18/18 06:26 10/18/18 05:18 10/18/18 06:26 10/18/18 05:18 General appearance: no acute distress - Respiratory Respiratory: bilateral: CTA - Cardiovascular Rhythm: regular - Gastrointestinal General gastrointestinal: Present: soft, tender (slight generalized TTP), non- distended, normal bowel sounds - Labs CBC & Chem 7: 10/18/18 05:11 10/18/18 05:11 Labs: Laboratory Results - last 24 hr 10/18/18 10/18/18 05:11 05:11 WBC 6.1 RBC 3.80 Hgb 10.7 L Hct 32.9 L MCV 87 MCH 28 MCHC 33 RDW 19.7 H Plt Count 188 Sodium 135 L Potassium 5.4 H Chloride 93.7 L Carbon Dioxide 26 Anion Gap 21 BUN 59 H Creatinine 10.2 H Estimated GFR 6 BUN/Creatinine Ratio 6 Glucose 105 H Calcium 8.5
--- NOTE | 2018-10-18 13:31 | Progress Note ---
Assessment and Plan Assessment and plan: Patient is a 57 y/o man with PMH of ESRD on HD, HTN, DM Type 2 on insulin, left eye blindness, right eye blurry vision (chronic), hepatitis B, GERD, TIA and hyperlipidemia who presented to [facility] with c/o nausea, vomiting, abdominal pain, chills. Pt went to HD and was found to have elevated blood glucose level >500, EMS was called. Pt was transported via EMS to [facility] for further evaluation. Pt found to have colitis and hyperglycemia. GI consulted. abdominal xry today showed stool impaction, held discharge, placed on stool softner. d/c when clears by GI. * CT abd/pelvis without contrast IMPRESSION: Comparison with prior will be made as an addendum once requested prior images and report are provided. * Nonspecific bilateral perinephric stranding. Please correlate for possible py elonephritis. No hydronephrosis. No nephroureteral stones. * Indeterminate mild hyperplasia of both adrenal glands. * Mild wall thickening of the descending colon and sigmoid colon may represent chronic or mild colitis or diverticulitis. Differential diagnosis includes normal variation and mild ente rocolitis. No perforation, abscess, or obstruction. * CT head without contrast: IMPRESSION: * No acute intracranial findings. * Sinus disease. / Abdominal pain due to Bacterial Colitis cont with IV abx therapy, GI consulted, serial abdominal exam. noted CT Abdomen/Pelvis report /Nausea vomiting, due to colitis, resolved / End stage renal disease on dialysis Nephrology consulted in ED, strict I/O, daily weight, avoid nephrotoxic agents. On TTS schedule, planned for HD tomorrow /Pyelonephritis abx treatment /stool impaction - seen on abdominal xry today added miralax, cont to monitor / Diabetes with hyperglycemia on insulin BG was >500 on admission cont ADA diet, insulin, accu check adjust insulin dose as needed / HTN (hypertension) monitor bp q shift, continue medical management. /hepatitis B, outpt follow up /hyperkalemia, due to ESRD s/p calcium gluconate, monitor BMP / DVT prophylaxis SCD to BLE while in bed. History Interval history: Patient was seen and examined. Follow-up on current diagnosis of colitis. Overnight uneventful. Patient denies any chest pain, shortness breath, nausea/vomiting or severe headaches. Imaging, nursing note, chart, labs and old chart reviewed. Discussed with patient. Hospitalist Physical - Physical exam Narrative exam: GEN: WDWN, NAD, Awake, Alert, Orientated HEENT: NCAT, EOMI, PERRL, OP Clear NECK: supple, no adenopathy, no thyromegaly, no JVD CVS/HEART: RRR, normal S1S2, pulses present bilaterally CHEST/LUNGS: CTA B, Symmetrical chest expansion, good air entry bilaterally GI/Abdomen: soft, NTND, good bowel sounds, no guarding or rebound /Bladder: no suprapubic tenderness, no CVA or paraspinal tenderness EXT/Skin: no c/c/e, no obvious rash MSK: FROM x 4 Neuro: CN 2-12 grossly intact, no new focal deficits Psych: calm - Constitutional Vitals: Temp Pulse Resp BP Pulse Ox 98.7 F 67 16 136/72 96 10/18/18 11:15 10/18/18 13:15 10/18/18 11:15 10/18/18 13:15 10/18/18 05:18 General appearance: Present: no acute distress, well-nourished Results - Labs CBC & Chem 7: 10/18/18 05:11 10/18/18 05:11 Labs: Laboratory Last Values WBC 6.1 K/mm3 (4.5-11.0) 10/18/18 05:11 RBC 3.80 M/mm3 (3.65-5.03) 10/18/18 05:11 Hgb 10.7 gm/dl (11.8-15.2) L 10/18/18 05:11 Hct 32.9 % (35.5-45.6) L 10/18/18 05:11 MCV 87 fl (84-94) 10/18/18 05:11 MCH 28 pg (28-32) 10/18/18 05:11 MCHC 33 % (32-34) 10/18/18 05:11 RDW 19.7 % (13.2-15.2) H 10/18/18 05:11 Plt Count 188 K/mm3 (140-440) 10/18/18 05:11 Lymph % (Auto) 21.4 % (13.4-35.0) 10/15/18 08:22 [place] % (Auto) 11.6 % (0.0-7.3) H 10/15/18 08:22 Eos % (Auto) 3.3 % (0.0-4.3) 10/15/18 08:22 Baso % (Auto) 1.1 % (0.0-1.8) 10/15/18 08:22 Lymph # 1.3 K/mm3 (1.2-5.4) 10/15/18 08:22 [place] # 0.7 K/mm3 (0.0-0.8) 10/15/18 08:22 Eos # 0.2 K/mm3 (0.0-0.4) 10/15/18 08:22 Baso # 0.1 K/mm3 (0.0-0.1) 10/15/18 08:22 Seg Neutrophils % 62.6 % (40.0-70.0) 10/15/18 08:22 Seg Neutrophils # 3.8 K/mm3 (1.8-7.7) 10/15/18 08:22 VBG pH 7.409 (7.320-7.420) 10/15/18 08:22 Sodium 135 mmol/L (137-145) L 10/18/18 05:11 Potassium 5.4 mmol/L (3.6-5.0) H 10/18/18 05:11 Chloride 93.7 mmol/L (98-107) L 10/18/18 05:11 Carbon Dioxide 26 mmol/L (22-30) 10/18/18 05:11 Anion Gap 21 mmol/L 10/18/18 05:11 BUN 59 mg/dL (9-20) H 10/18/18 05:11 Creatinine 10.2 mg/dL (0.8-1.5) H 10/18/18 05:11 Estimated GFR 6 ml/min 10/18/18 05:11 BUN/Creatinine Ratio 6 % 10/18/18 05:11 Glucose 105 mg/dL (75-100) H 10/18/18 05:11 POC Glucose 145 (70-105) H 10/16/18 23:55 Calcium 8.5 mg/dL (8.4-10.2) 10/18/18 05:11 Phosphorus 5.60 mg/dL (2.5-4.5) H 10/16/18 06:39 Magnesium 2.10 mg/dL (1.7-2.3) 10/16/18 06:39 Ammonia 28.0 umol/L (25-60) 10/15/18 10:39 TSH 1.220 mlU/mL (0.270-4.200) 10/15/18 10:39 Free T4 1.31 ng/dL (0.76-1.46) 10/15/18 10:39 Urine Color Straw (Yellow) 10/15/18 Unknown Urine Turbidity Clear (Clear) 10/15/18 Unknown Urine pH 9.0 (5.0-7.0) H 10/15/18 Unknown Ur Specific [place] 1.010 (1.003-1.030) 10/15/18 Unknown Urine Protein >500 mg/dL (Negative) 10/15/18 Unknown Urine Glucose (UA) >=500 mg/dL (Negative) 10/15/18 Unknown Urine Ketones Neg mg/dL (Negative) 10/15/18 Unknown Urine Blood Neg (Negative) 10/15/18 Unknown Urine Nitrite Neg (Negative) 10/15/18 Unknown Urine Bilirubin Neg (Negative) 10/15/18 Unknown Urine Urobilinogen < 2.0 mg/dL (<2.0) 10/15/18 Unknown Ur Leukocyte Esterase Neg (Negative) 10/15/18 Unknown Urine WBC (Auto) 4.0 /HPF (0.0-6.0) 10/15/18 Unknown Urine RBC (Auto) 1.0 /HPF (0.0-6.0) 10/15/18 Unknown Hepatitis A IgM Ab Non-reactive (NonReactive) 10/15/18 17:40 Hep Bs Antigen Reactive (Negative) 10/15/18 17:40 Hep B Core IgM Ab Reactive (NonReactive) A 10/15/18 17:40 Hepatitis C Antibody Non-reactive (NonReactive) 10/15/18 17:40
--- NOTE | 2018-10-18 13:38 | Discharge Summary ---
Providers - Providers Date of Admission: 10/15/18 13:07 Date of discharge: 10/18/18 Attending physician: MADELINE QUISPE 10/15/18 14:25 Consult to Physician [CONS] Routine Comment: Consulting Provider: OLGA ARELLANO Physician Instructions: Reason For Exam: esrd 10/15/18 16:30 Consult to Physician [CONS] Routine Comment: Consulting Provider: SHAWANDA KAY Physician Instructions: Reason For Exam: colitis Hospitalization Condition: Stable Hospital course: Patient is a 57 y/o man with PMH of ESRD on HD, HTN, DM Type 2 on insulin, left eye blindness, right eye blurry vision (chronic), hepatitis B, GERD, TIA and hyperlipidemia who presented to [facility] with c/o nausea, vomiting, abdominal pains and chills. Pt went to HD and was found to have elevated blood glucose level >500, EMS was called. Pt was transported via EMS to [facility] for further evaluation. Pt was found to have colitis and hyperglycemia/HONK. GI consulted. abdominal xry today showed stool impaction, held discharge, placed on stool softner, d/c cleared by GI today * CT abd/pelvis without contrast IMPRESSION: Comparison with prior will be made as an addendum once requested prior images and report are provided. * Nonspecific bilateral perinephric stranding. Please correlate for possible pyelonephritis. No hydronephrosis. No nephroureteral stones. * Indeterminate mild hyperplasia of both adrenal glands. * Mild wall thickening of the descending colon and sigmoid colon may represent chronic or mild colitis or diverticulitis. Differential diagnosis includes normal variation and mild enterocolitis. No perforation, abscess, or obstruction. * CT head without contrast: IMPRESSION: * No acute intracranial findings. * Sinus disease. / Diabetes with hyperglycemia on insulin, most likely HONK, poa caused by infection BG was >500 on admission cont ADA diet, insulin, accu check adjust insulin dose as needed / Abdominal pain due to Bacterial Colitis cont with IV abx therapy, GI consulted, serial abdominal exam. noted CT Abdomen/Pelvis report /Nausea vomiting, due to colitis, resolved / End stage renal disease on dialysis Nephrology consulted in ED, strict I/O, daily weight, avoid nephrotoxic agents. On TTS schedule, planned for HD tomorrow /Pyelonephritis abx treatment /stool impaction - seen on abdominal xry today added miralax, which worked / HTN (hypertension) monitor bp q shift, continue medical management. /hepatitis B, outpt follow up /hyperkalemia, due to ESRD s/p calcium gluconate, monitor BMP / DVT prophylaxis SCD to BLE while in bed. Disposition: DC-01 TO HOME OR SELFCARE Time spent for discharge: 35 minutes Core Measure Documentation - Palliative Care Palliative Care/ Comfort Measures: Not Applicable - Core Measures Any of the following diagnoses?: none - VTE Discharge Requirements Deep Vein Thrombosis/Pulmonary Embolism Present on Admission: No Has pt received <5 days of overlap therapy or INR<2.0: No Anticoagulant overlap therapy prescribed at discharge: No Contraindication No Overlap Therapy order at DC: Not Indicated Exam - Physical Exam Narrative exam: GEN: WDWN, NAD, Awake, Alert, Orientated HEENT: NCAT, EOMI, PERRL, OP Clear NECK: supple, no adenopathy, no thyromegaly, no JVD CVS/HEART: RRR, normal S1S2, pulses present bilaterally CHEST/LUNGS: CTA B, Symmetrical chest expansion, good air entry bilaterally GI/Abdomen: soft, NTND, good bowel sounds, no guarding or rebound /Bladder: no suprapubic tenderness, no CVA or paraspinal tenderness EXT/Skin: no c/c/e, no obvious rash MSK: FROM x 4 Neuro: CN 2-12 grossly intact, no new focal deficits Psych: calm - Constitutional Vitals: Temp Pulse Resp BP Pulse Ox 98.7 F 69 16 123/66 96 10/18/18 11:15 10/18/18 13:30 10/18/18 11:15 10/18/18 13:30 10/18/18 05:18 Plan Activity: other Diet: renal Follow up with: DANDRE GLASER [Other] - 3-5 Days LUCILA BARONE MD [Staff Physician] - 7 Days Prescriptions: cloNIDine [Catapres] 0.1 mg PO TID #90 tablet metroNIDAZOLE [Flagyl] 500 mg PO Q8HR #15 tablet levoFLOXacin [Levaquin TAB] 250 mg PO Q48H #6 dose Polyethylene Glycol 3350 [Miralax 3350] 17 gm PO QDAY PRN 7 Days powd.pack PRN Reason: Constipation
[2018-10-18] MEDS: SENSIPAR PO SCH ×2 (16:29→17:54)
[2018-10-18] MEDS: PROTONIX PO SCH (16:30)
[2018-10-18] MEDS: PROzac PO SCH ×2 (16:30→16:41)
[2018-10-18] MEDS: NORVASC PO SCH (16:30)
[2018-10-18] MEDS: NEURONTIN PO SCH (16:30)
[2018-10-18] MEDS: SODIUM CHLORIDE FLUSH SYRINGE 10 ML IV SCH ×2 (16:31→21:08)
[2018-10-18] MEDS: ZESTRIL PO SCH (16:31)
[2018-10-18] MEDS: ASPIRIN PO SCH (16:31)
[2018-10-18] MEDS: ZAROXOLYN PO SCH (16:33)
[2018-10-18] MEDS ORDERED: NACL 0.9 (PRIMING MACHINE ONLY DIALYSIS) MC ONE (20:26)
[2018-10-18] MEDS: DESYREL PO SCH (21:03)
[2018-10-18 22:03] VITALS: BP 128/75
[2018-10-19] MEDS ORDERED: MIRALAX 3350 PO SCH (10:00)
== END 2018-10-18 23:30 | disposition home or self-care (01) | DRG 637 ==
LOC: ED 07:52 → IMCU 13:07 → 3A 10-16 15:17
PROVIDERS: ADMIT Internal Medicine; ATTEND Internal Medicine
PROC: 5A1D70Z Performance of Urinary Filtration, Intermittent, Less than 6 Hours Per Day (ICD-10-PCS; principal; 2018-10-15)
PROC: 5A1D70Z Performance of Urinary Filtration, Intermittent, Less than 6 Hours Per Day (ICD-10-PCS; 2018-10-18)
DX: E11.00 Type 2 diabetes mellitus with hyperosmolarity without nonketotic hyperglycemic-hyperosmolar coma (NKHHC) (principal); N18.6 End stage renal disease; K57.92 Diverticulitis of intestine, part unspecified, without perforation or abscess without bleeding; I12.0 Hypertensive chronic kidney disease with stage 5 chronic kidney disease or end stage renal disease; N12 Tubulo-interstitial nephritis, not specified as acute or chronic; K52.9 Noninfective gastroenteritis and colitis, unspecified; E11.65 Type 2 diabetes mellitus with hyperglycemia; E87.5 Hyperkalemia; E11.22 Type 2 diabetes mellitus with diabetic chronic kidney disease; E78.00 Pure hypercholesterolemia, unspecified; K59.00 Constipation, unspecified; K21.9 Gastro-esophageal reflux disease without esophagitis; H54.62 Unqualified visual loss, left eye, normal vision right eye; E78.5 Hyperlipidemia, unspecified; Z99.2 Dependence on renal dialysis; Z86.73 Personal history of transient ischemic attack (TIA), and cerebral infarction without residual deficits; Z83.3 Family history of diabetes mellitus; Z82.49 Family history of ischemic heart disease and other diseases of the circulatory system; Z88.8 Allergy status to other drugs, medicaments and biological substances; Z88.6 Allergy status to analgesic agent; Z88.5 Allergy status to narcotic agent; Z91.010 Allergy to peanuts; Z79.4 Long term (current) use of insulin; Z79.82 Long term (current) use of aspirin; Z79.899 Other long term (current) drug therapy; Z86.19 Personal history of other infectious and parasitic diseases
CPT/HCPCS: 36415; 70450; 71045; 74018; 74176; 80048; 80074; 81001; 82140; 82805; 82962; 83735; 84100; 84439; 84443; 85025; 85027; 93005; 93010; 96374; G0378; A9270-GY; J0610; J1815; J2405; J2920; J7030; Q0162